=== PATIENT | female | born 1935 ===

== ENCOUNTER 2019-01-12 18:18 | Inpatient (IN) | payer MEDICARE ==
[2019-01-13] MEDS ORDERED: GEODON IM ONE (05:06)
[2019-01-13 11:37] LABS: Basophils % (Auto) 0.4 % (0.0-1.8); Eosinophils # (Auto) 0.1 K/mm3 (0.0-0.4); Eosinophils % (Auto) 1.5 % (0.0-4.3); Hemoglobin 12.7 gm/dl (10.1-14.3); Mean Corpuscular HGB Conc 34 % (30-34); Mean Corpuscular Volume 84 fl (79-97); Monocytes # (Auto) 0.4 K/mm3 (0.0-0.8); Monocytes % (Auto) 8.4 % (0.0-7.3); Platelet Count 196 K/mm3 (140-440); Red Blood Count 4.53 M/mm3 (3.65-5.03); Red Cell Distribution Width 14.6 % (13.2-15.2)
[2019-01-13 11:48] LABS: Calcium 9.4 mg/dL (8.4-10.2)
[2019-01-13] MEDS ORDERED: HALDOL DECANOATE IM PRN (15:01)
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
[2019-01-13] MEDS ORDERED: NON-FORMULARY (Aspirin 81 MG) PO SCH (15:45)
[2019-01-13] MEDS ORDERED: LASIX 40 MG PO SCH (15:45)
[2019-01-13] MEDS: LASIX PO SCH (16:18)
[2019-01-13] MEDS: HALFPRIN EC PO SCH (16:18)
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
[2019-01-13] MEDS: RisperDAL PO SCH ×2 (17:55→21:21)
[2019-01-13] MEDS: HALDOL IM PRN (18:32)
[2019-01-13] MEDS: COREG PO SCH (21:21)
[2019-01-13] MEDS: ATIVAN IM PRN (21:31)
[2019-01-13] MEDS ORDERED: NON-FORMULARY (Coreg 3.125 MG) PO SCH (22:00)
[2019-01-13] MEDS: MELATONIN PO SCH (22:25)
[2019-01-14 08:51] LABS: Calcium 9.1 mg/dL (8.4-10.2); Chol/HDL Ratio 1.77 %
[2019-01-14] MEDS ORDERED: PROCARDIA 60 MG PO SCH (10:00)
[2019-01-14] MEDS ORDERED: CRESTOR 5 MG PO SCH (10:00)
[2019-01-14] MEDS: RisperDAL PO SCH ×2 (10:29→21:36)
[2019-01-14] MEDS: HALFPRIN EC PO SCH (10:29)
[2019-01-14] MEDS: LASIX PO SCH (10:29)
[2019-01-14] MEDS: COREG PO SCH ×2 (10:29→21:35)
[2019-01-14] MEDS: PROCARDIA XL PO SCH (10:33)
--- NOTE | 2019-01-14 11:33 | Progress Note ---
Subjective Date of service: 01/14/19 Principal diagnosis: Dementia w Beh D, Delirium, vision and hearing impaired Subjective Comment: Patient is confused, upset and agitated. Still not communicating but no aggression. She accepts her medications with no observed or reported side effects. She is eating and sleeping well. Objective - Criteria for Continued Treatment Criteria for Continued Treatment: Improving Level of Functioning, Improving Treatment / Medication Compliance, Stablizing Level of Functioning - Mental Status Mental Status: Oriented x [address] - Objective Observation Participation Level: Minimal Assessment and Plan - Patient Problems (1) Major neurocognitive disorder due to Alzheimer's disease, probable, with behavioral disturbance Current Visit: Yes Status: Acute Plan to address problem: Patient will be admitted for inpatient psychiatric evaluation, medication adjustment and close monitoring The patient's behavior, mood, sleep and appetite will be closely monitored. Patient will be enrolled in individual and group therapeutic sessions and encouraged to attend. Patient will be provided with a safe and structured environment. Patient's physical health needs will be addressed by the Hospitalist. Social Assessment will be completed and the Top Spotter will work with patient and family to ensure a suitable and safe disposition Medication adjustment will be made as clinically indicated Risperidone 0.5mg for psychosis/delirium Haldol 5mg IM and Lorazepam im for severe agitation. Melatonin 5mg qhs for sleep/wake cycle regulation. 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
[2019-01-14] MEDS: COZAAR PO SCH (15:56)
[2019-01-14] MEDS: ATIVAN PO PRN (20:17)
[2019-01-14] MEDS: MELATONIN PO SCH (21:35)
[2019-01-15] MEDS: ALDACTONE PO SCH (09:48)
[2019-01-15] MEDS: HALFPRIN EC PO SCH (09:48)
[2019-01-15] MEDS: PROCARDIA XL PO SCH (09:49)
[2019-01-15] MEDS: COREG PO SCH ×2 (09:50→21:51)
[2019-01-15] MEDS: RisperDAL PO SCH ×2 (09:51→21:51)
[2019-01-15] MEDS: COZAAR PO SCH (09:52)
[2019-01-15] MEDS: LASIX PO SCH (09:53)
[2019-01-15] MEDS ORDERED: NON-FORMULARY (Spironolactone 25 MG) PO SCH (10:00)
--- NOTE | 2019-01-15 10:56 | Progress Note ---
Subjective Date of service: 01/15/19 Principal diagnosis: Dementia w Beh D, Delirium, vision and hearing impaired Subjective Comment: No changes. She is confused but no aggression. She accepts her medications with no observed or reported side effects. She is eating and sleeping well. Objective - Criteria for Continued Treatment Criteria for Continued Treatment: Improving Level of Functioning, Stablizing Level of Functioning, Improving Emotional/Socia - Mental Status Mental Status: Oriented x [address] & [address] - Objective Observation Participation Level: Minimal Assessment and Plan - Patient Problems (1) Major neurocognitive disorder due to Alzheimer's disease, probable, with behavioral disturbance Current Visit: Yes Status: Acute Plan to address problem: Patient will be admitted for inpatient psychiatric evaluation, medication adjustment and close monitoring The patient's behavior, mood, sleep and appetite will be closely monitored. Patient will be enrolled in individual and group therapeutic sessions and encouraged to attend. Patient will be provided with a safe and structured environment. Patient's physical health needs will be addressed by the Hospitalist. Social Assessment will be completed and the Oncology Pharmacist will work with patient and family to ensure a suitable and safe disposition Medication adjustment will be made as clinically indicated Risperidone 0.5mg for psychosis/delirium Haldol 5mg IM and Lorazepam im for severe agitation. Melatonin 5mg qhs for sleep/wake cycle regulation. 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
[2019-01-15] MEDS: HALDOL IM PRN (14:51)
[2019-01-15] MEDS: ATIVAN IM PRN (14:52)
[2019-01-15] MEDS: ATIVAN PO PRN (20:13)
[2019-01-15] MEDS: MELATONIN PO SCH (21:51)
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
[2019-01-16] MEDS: RisperDAL PO SCH ×2 (10:29→21:19)
[2019-01-16] MEDS: HALFPRIN EC PO SCH (10:29)
[2019-01-16] MEDS: LASIX PO SCH (10:29)
[2019-01-16] MEDS: ALDACTONE PO SCH (10:46)
[2019-01-16] MEDS: COREG PO SCH ×2 (10:46→21:19)
[2019-01-16] MEDS: COZAAR PO SCH (10:46)
[2019-01-16] MEDS: PROCARDIA XL PO SCH (10:47)
[2019-01-16] MEDS: HALDOL IM PRN (17:26)
[2019-01-16] MEDS: MELATONIN PO SCH (21:19)
[2019-01-16] MEDS ORDERED: DESYREL PO PRN (22:00)
[2019-01-17] MEDS: ALDACTONE PO SCH (09:03)
[2019-01-17] MEDS: COREG PO SCH ×2 (09:04→21:35)
[2019-01-17] MEDS: COZAAR PO SCH (09:05)
[2019-01-17] MEDS: HALFPRIN EC PO SCH (09:05)
[2019-01-17] MEDS: PROCARDIA XL PO SCH (09:06)
[2019-01-17] MEDS: RisperDAL PO SCH ×2 (09:06→21:36)
[2019-01-17] MEDS: LASIX PO SCH (09:06)
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
[2019-01-17] MEDS: MELATONIN PO SCH (21:35)
--- NOTE | 2019-01-18 07:59 | Progress Note ---
Subjective Date of service: 01/18/19 Principal diagnosis: Dementia w Beh D, Delirium, vision and hearing impaired Subjective Comment: Patient is improving. Nursing staff reports that she is calm, cooperative with cares and not aggressive. She reports feeling good, denies SI/HI/AVH/Paranoia. Nursing staff reports that staff feeds her and she attempts to spit out her meds. She slept well last night. Objective - Criteria for Continued Treatment Criteria for Continued Treatment: Improving Level of Functioning, Stablizing Level of Functioning, Improving Emotional/Socia - Mental Status Mental Status: Oriented x [address] - Objective Observation Participation Level: Moderate Assessment and Plan - Patient Problems (1) Major neurocognitive disorder due to Alzheimer's disease, probable, with behavioral disturbance Current Visit: Yes Status: Acute Plan to address problem: Patient will be admitted for inpatient psychiatric evaluation, medication adjustment and close monitoring The patient's behavior, mood, sleep and appetite will be closely monitored. Patient will be enrolled in individual and group therapeutic sessions and encouraged to attend. Patient will be provided with a safe and structured environment. Patient's physical health needs will be addressed by the Hospitalist. Social Assessment will be completed and the Groundman will work with patient and family to ensure a suitable and safe disposition Medication adjustment will be made as clinically indicated Risperidone 0.5mg bid for psychosis/delirium Haldol 5mg IM q6h prn for severe agitation. Melatonin 5mg qhs for sleep/wake cycle regulation. 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
[2019-01-18] MEDS: HALFPRIN EC PO SCH (10:15)
[2019-01-18] MEDS: ALDACTONE PO SCH (10:15)
[2019-01-18] MEDS: COREG PO SCH ×2 (10:16→21:13)
[2019-01-18] MEDS: LASIX PO SCH (10:17)
[2019-01-18] MEDS: RisperDAL PO SCH ×2 (10:17→21:14)
[2019-01-18] MEDS: COZAAR PO SCH (10:17)
[2019-01-18] MEDS: PROCARDIA XL PO SCH (10:17)
[2019-01-18] MEDS: MELATONIN PO SCH (21:14)
--- NOTE | 2019-01-19 07:37 | Progress Note ---
Subjective Date of service: 01/19/19 Principal diagnosis: Dementia w Beh D, Delirium, vision and hearing impaired Subjective Comment: Patient is pleasantly confused this morning. She is calm, cooperative with cares and not aggressive. She reports feeling good, denies SI/HI/AVH/Paranoia. Nursing staff reports that she had 2 loose stools yesterday. She slept well last night. Daughters are visiting her later today. Objective - Criteria for Continued Treatment Criteria for Continued Treatment: Improving Level of Functioning, Stablizing Level of Functioning, Improving Emotional/Socia - Mental Status Mental Status: Oriented x 1 Person only - Objective Observation Participation Level: Moderate Assessment and Plan - Patient Problems (1) Major neurocognitive disorder due to Alzheimer's disease, probable, with behavioral disturbance Current Visit: Yes Status: Acute Plan to address problem: Patient will be admitted for inpatient psychiatric evaluation, medication adjustment and close monitoring The patient's behavior, mood, sleep and appetite will be closely monitored. Patient will be enrolled in individual and group therapeutic sessions and encouraged to attend. Patient will be provided with a safe and structured environment. Patient's physical health needs will be addressed by the Hospitalist. Social Assessment will be completed and the Neuroscientist will work with patient and family to ensure a suitable and safe disposition Medication adjustment will be made as clinically indicated Risperidone 0.5mg bid for psychosis/delirium Haldol 5mg IM q6h prn for severe agitation. Melatonin 5mg qhs for sleep/wake cycle regulation. 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
[2019-01-19] MEDS: HALFPRIN EC PO SCH (09:25)
[2019-01-19] MEDS: RisperDAL PO SCH ×2 (09:26→21:07)
[2019-01-19] MEDS: COZAAR PO SCH (11:15)
[2019-01-19] MEDS: PROCARDIA XL PO SCH (11:16)
[2019-01-19] MEDS: COREG PO SCH ×2 (11:17→21:07)
[2019-01-19] MEDS: ALDACTONE PO SCH (11:18)
[2019-01-19] MEDS: LASIX PO SCH (11:22)
[2019-01-19] MEDS: HALDOL IM PRN (20:15)
[2019-01-19] MEDS: MELATONIN PO SCH (21:07)
[2019-01-20 01:28] LABS: Hepatitis C Virus Antibody Non-Reactive (NonReactive)
[2019-01-20 01:55] LABS: Hepatitis B Surface Antigen Non-Reactive (Negative)
[2019-01-20] MEDS: HALFPRIN EC PO SCH (10:07)
[2019-01-20] MEDS: COREG PO SCH ×2 (10:07→21:02)
[2019-01-20] MEDS: RisperDAL PO SCH ×2 (10:07→21:03)
[2019-01-20] MEDS: LASIX PO SCH (10:08)
[2019-01-20] MEDS: ALDACTONE PO SCH (10:08)
[2019-01-20] MEDS: COZAAR PO SCH (10:08)
[2019-01-20] MEDS: PROCARDIA XL PO SCH (10:09)
--- NOTE | 2019-01-20 19:15 | Progress Note ---
Subjective Date of service: 01/20/19 Principal diagnosis: Dementia w Beh D, Delirium, vision and hearing impaired Subjective Comment: Patient was agitated and aggressive last night and required PRN medications - given at 2015 hrs last night. Her daughters visited yesterday and indicated that they are not happy to have her discharged from the hospital if she is still aggressive towards others. She is pleasantly confused this morning. She reports feeling good, denies SI/HI/AVH/Paranoia. Objective - Criteria for Continued Treatment Criteria for Continued Treatment: Improving Level of Functioning, Stablizing Level of Functioning, Improving Emotional/Socia - Mental Status Mental Status: Oriented x 1 Person only - Objective Observation Participation Level: Moderate Assessment and Plan - Patient Problems (1) Major neurocognitive disorder due to Alzheimer's disease, probable, with behavioral disturbance Current Visit: Yes Status: Acute Plan to address problem: Patient will be admitted for inpatient psychiatric evaluation, medication adjustment and close monitoring The patient's behavior, mood, sleep and appetite will be closely monitored. Patient will be enrolled in individual and group therapeutic sessions and encouraged to attend. Patient will be provided with a safe and structured environment. Patient's physical health needs will be addressed by the Hospitalist. Social Assessment will be completed and the Clean Room Operator will work with patient and family to ensure a suitable and safe disposition Medication adjustment will be made as clinically indicated Will add [id number] and Mirtazapine 7.5mg qhs for mood. Risperidone 0.5mg bid for psychosis/delirium Haldol 5mg IM q6h prn for severe agitation. Melatonin 5mg qhs for sleep/wake cycle regulation. 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
[2019-01-20] MEDS: MELATONIN PO SCH (21:02)
[2019-01-20] MEDS: REMERON PO SCH (21:52)
--- NOTE | 2019-01-21 08:37 | Progress Note ---
Subjective Date of service: 01/21/19 Principal diagnosis: Dementia w Beh D, Delirium, vision and hearing impaired Subjective Comment: Patient was was started on Mirtazapine 7.5mg qhs last night and Citalopram 10mg daily. She was agitated, aggressive and required PRN medications on Monday night. She is pleasantly confused this morning. She reports feeling good, denies SI/HI/AVH/Paranoia. Objective - Criteria for Continued Treatment Criteria for Continued Treatment: Improving Level of Functioning, Improving Emotional/Socia, Decreasing Frequency of Hospitalization - Mental Status Mental Status: Oriented x 1 Person only - Objective Observation Participation Level: Minimal Assessment and Plan - Patient Problems (1) Major neurocognitive disorder due to Alzheimer's disease, probable, with behavioral disturbance Current Visit: Yes Status: Acute Plan to address problem: Patient will be admitted for inpatient psychiatric evaluation, medication adjustment and close monitoring The patient's behavior, mood, sleep and appetite will be closely monitored. Patient will be enrolled in individual and group therapeutic sessions and encouraged to attend. Patient will be provided with a safe and structured environment. Patient's physical health needs will be addressed by the Hospitalist. Social Assessment will be completed and the Blower Operator will work with patient and family to ensure a suitable and safe disposition Medication adjustment will be made as clinically indicated To start [id number] qd this morning Continue Mirtazapine 7.5mg qhs for mood. Risperidone 0.5mg bid for psychosis/delirium Haldol 5mg IM q6h prn for severe agitation. Melatonin 5mg qhs for sleep/wake cycle regulation. 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 Current Visit: Yes Status: Acute (4) Hearing impairment Current Visit: Yes Status: Acute Medications & Allergies - Medications Allergies/Adverse Reactions: Allergies No Known Allergies Allergy (Verified 01/13/19 05:10) Home Medications: Home Medications Medication Instructions Recorded Confirmed Last Taken Type Aspirin 81 mg PO DAILY 01/13/19 01/13/19 Unknown History Coreg 3.125 mg PO BID 01/13/19 01/13/19 Unknown History Crestor 5 mg PO DAILY 01/13/19 01/13/19 Unknown History Lasix TAB 40 mg PO DAILY 01/13/19 01/13/19 Unknown History Losartan 100 mg PO DAILY 01/13/19 01/13/19 Unknown History Procardia Xl 60 mg PO DAILY 01/13/19 01/13/19 Unknown History Spironolactone 25 mg PO DAILY 01/13/19 01/13/19 Unknown History Active Medications: Generic Name Dose Route Start Last Admin Trade Name Freq PRN Reason Stop Dose Admin Aspirin 81 mg 01/13/19 16:00 01/20/19 10:07 Halfprin Ec PO 81 mg QDAY NICKY Administration Atorvastatin Calcium 10 mg 01/14/19 10:00 01/20/19 10:09 Lipitor PO 10 mg QDAY NICKY Administration Carvedilol 3.125 mg 01/13/19 22:00 01/20/19 21:02 Coreg PO 3.125 mg BID NICKY Administration Citalopram Hydrobromide 10 mg 01/21/19 10:00 Celexa PO QDAY NICKY Furosemide 40 mg 01/13/19 16:00 01/20/19 10:08 Lasix PO 40 mg QDAY NICKY Administration Haloperidol Lactate 5 mg 01/13/19 16:12 01/19/19 20:15 Haldol IM 5 mg Q6H PRN Administration Agitation Losartan Potassium 100 mg 01/14/19 14:00 01/20/19 10:08 Cozaar PO 100 mg QDAY NICKY Administration Melatonin 5 mg 01/13/19 22:00 01/20/19 21:02 Melatonin PO 5 mg QHS NICKY Administration Mirtazapine 7.5 mg 01/20/19 22:00 01/20/19 21:52 Remeron PO 7.5 mg QHS NICKY Administration Nifedipine 60 mg 01/14/19 10:00 01/20/19 10:09 Procardia Xl PO 60 mg QDAY NICKY Administration Risperidone 0.5 mg 01/13/19 17:00 01/20/19 21:03 Risperdal PO 0.5 mg BID NICKY Administration Spironolactone 25 mg 01/15/19 10:00 01/20/19 10:08 Aldactone PO 25 mg QDAY NICKY Administration Trazodone HCl 50 mg 01/16/19 22:00 01/16/19 21:20 Desyrel PO 50 mg QHS PRN Administration insomnia
[2019-01-21] MEDS: LASIX PO SCH (09:06)
[2019-01-21] MEDS: RisperDAL PO SCH ×2 (09:08→21:24)
[2019-01-21] MEDS: HALFPRIN EC PO SCH (09:10)
[2019-01-21] MEDS: ALDACTONE PO SCH (09:41)
[2019-01-21] MEDS: COZAAR PO SCH (09:42)
[2019-01-21] MEDS: PROCARDIA XL PO SCH (09:42)
[2019-01-21] MEDS: COREG PO SCH ×2 (09:45→21:23)
[2019-01-21] MEDS: celeXA PO SCH (09:50)
[2019-01-21] MEDS: MELATONIN PO SCH (21:23)
[2019-01-21] MEDS: REMERON PO SCH (21:24)
--- NOTE | 2019-01-22 07:52 | Progress Note ---
Subjective Date of service: 01/22/19 Principal diagnosis: Dementia w Beh D, Delirium, vision and hearing impaired Subjective Comment: Patient is tolerating her new medications. She slept through the last night. She is calm, pleasant and compliant with meds. She reports feeling good, denies SI/H I/AVH/Paranoia. Objective - Criteria for Continued Treatment Criteria for Continued Treatment: Improving Level of Functioning, Stablizing Level of Functioning, Improving Emotional/Socia - Mental Status Mental Status: Oriented x 1 Person only - Objective Observation Participation Level: Moderate Assessment and Plan - Patient Problems (1) Major neurocognitive disorder due to Alzheimer's disease, probable, with behavioral disturbance Current Visit: Yes Status: Acute Plan to address problem: Patient will be admitted for inpatient psychiatric evaluation, medication adjustment and close monitoring The patient's behavior, mood, sleep and appetite will be closely monitored. Patient will be enrolled in individual and group therapeutic sessions and encouraged to attend. Patient will be provided with a safe and structured environment. Patient's physical health needs will be addressed by the Hospitalist. Social Assessment will be completed and the Campaign Director will work with patient and family to ensure a suitable and safe disposition Medication adjustment will be made as clinically indicated Continue [id number] qd (01/21) Continue Mirtazapine 7.5mg qhs for mood (01/22) Risperidone 0.5mg bid for psychosis/delirium Haldol 5mg IM q6h prn for severe agitation. Melatonin 5mg qhs for sleep/wake cycle regulation. 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 Current Visit: Yes Status: Acute (4) Hearing impairment Current Visit: Yes Status: Acute Medications & Allergies - Medications Allergies/Adverse Reactions: Allergies No Known Allergies Allergy (Verified 01/13/19 05:10) Home Medications: Home Medications Medication Instructions Recorded Confirmed Last Taken Type Aspirin 81 mg PO DAILY 01/13/19 01/13/19 Unknown History Coreg 3.125 mg PO BID 01/13/19 01/13/19 Unknown History Crestor 5 mg PO DAILY 01/13/19 01/13/19 Unknown History Lasix TAB 40 mg PO DAILY 01/13/19 01/13/19 Unknown History Losartan 100 mg PO DAILY 01/13/19 01/13/19 Unknown History Procardia Xl 60 mg PO DAILY 01/13/19 01/13/19 Unknown History Spironolactone 25 mg PO DAILY 01/13/19 01/13/19 Unknown History Active Medications: Generic Name Dose Route Start Last Admin Trade Name Freq PRN Reason Stop Dose Admin Aspirin 81 mg 01/13/19 16:00 01/21/19 09:10 Halfprin Ec PO 81 mg QDAY NCIKY Administration Atorvastatin Calcium 10 mg 01/14/19 10:00 01/21/19 09:45 Lipitor PO 10 mg QDAY NICKY Administration Carvedilol 3.125 mg 01/13/19 22:00 01/21/19 21:23 Coreg PO 3.125 mg BID NICKY Administration Citalopram Hydrobromide 10 mg 01/21/19 10:00 01/21/19 09:50 Celexa PO 10 mg QDAY NICKY Administration Furosemide 40 mg 01/13/19 16:00 01/21/19 09:06 Lasix PO 40 mg QDAY NICKY Administration Haloperidol Lactate 5 mg 01/13/19 16:12 01/19/19 20:15 Haldol IM 5 mg Q6H PRN Administration Agitation Losartan Potassium 100 mg 01/14/19 14:00 01/21/19 09:42 Cozaar PO 100 mg QDAY NICKY Administration Melatonin 5 mg 01/13/19 22:00 01/21/19 21:23 Melatonin PO 5 mg QHS NICKY Administration Mirtazapine 7.5 mg 01/20/19 22:00 01/21/19 21:24 Remeron PO 7.5 mg QHS NICKY Administration Nifedipine 60 mg 01/14/19 10:00 01/21/19 09:42 Procardia Xl PO 60 mg QDAY NICKY Administration Risperidone 0.5 mg 01/13/19 17:00 01/21/19 21:24 Risperdal PO 0.5 mg BID NICKY Administration Spironolactone 25 mg 01/15/19 10:00 01/21/19 09:41 Aldactone PO 25 mg QDAY NICKY Administration Trazodone HCl 50 mg 01/16/19 22:00 01/16/19 21:20 Desyrel PO 50 mg QHS PRN Administration insomnia
[2019-01-22] MEDS: COZAAR PO SCH (10:30)
[2019-01-22] MEDS: PROCARDIA XL PO SCH (10:30)
[2019-01-22] MEDS: ALDACTONE PO SCH (10:30)
[2019-01-22] MEDS: COREG PO SCH (10:30)
[2019-01-22] MEDS: LASIX PO SCH (10:30)
[2019-01-22] MEDS: celeXA PO SCH (10:30)
[2019-01-22] MEDS: HALFPRIN EC PO SCH (10:30)
[2019-01-22] MEDS ORDERED: ZOFRAN IV PRN (14:12)
[2019-01-22] MEDS ORDERED: ZOFRAN ODT PO PRN (14:15)
--- NOTE | 2019-01-22 14:23 | Event Note ---
Date: 01/22/19 Rapid response called because patient vomited. Oxygen sats down to 90%. BP 97/50s. She has dementia, heard of hearing, cannot give much history. Will obtain CBC, CMP, Mg, Phos, EKG, Chest X ray.
[2019-01-22] MEDS: RisperDAL PO SCH (14:30)
[2019-01-22 14:31] LABS: Hemoglobin 11.9 gm/dl (10.1-14.3); Mean Corpuscular HGB Conc 34 % (30-34); Mean Corpuscular Volume 83 fl (79-97); Platelet Count 244 K/mm3 (140-440); Red Blood Count 4.22 M/mm3 (3.65-5.03); Red Cell Distribution Width 14.4 % (13.2-15.2)
[2019-01-22 14:37] VITALS: BP 136/80
[2019-01-22 14:47] LABS: Albumin 3.8 g/dL (3.9-5); Calcium 9.3 mg/dL (8.4-10.2)
[2019-01-22 15:25] LABS: Creatine Kinase MB 2.2 ng/mL (0.0-4.0)
--- NOTE | 2019-01-22 16:11 | XRay Report ---
. CHEST 1 VIEW INDICATION / CLINICAL INFORMATION: vomited, poss aspiration. COMPARISON: None available. FINDINGS: SUPPORT DEVICES: None. HEART / MEDIASTINUM: Atherosclerotic calcifications are noted in the aortic arch. LUNGS / PLEURA: No significant pulmonary or pleural abnormality.. No pneumothorax. ADDITIONAL FINDINGS: There are healed left-sided rib fractures. IMPRESSION: 1. No acute findings. Signer Name: Amadeo Hallman MD Signed: 01/22/2019 4:07 PM Workstation Name: [id number]
--- NOTE | 2019-01-22 16:19 | Discharge Summary ---
Providers - Providers Date of Admission: 01/12/19 22:02 Date of discharge: 01/22/19 Attending physician: MARIBEL PATRICK MD 01/21/19 10:55 Consult to Physician [CONS] Routine Comment: Consulting Provider: SUZIE MARSHALL Physician Instructions: Reason For Exam: [facility] Primary care physician: MARIBEL PATRICK MD Hospitalization Allergies/Adverse Reactions: Allergies No Known Allergies Allergy (Verified 01/13/19 05:10) Vital Signs: Last Vital Signs Temp 97.7 F 01/21/19 20:30 Pulse 86 01/22/19 14:25 Resp 14 01/22/19 14:25 BP 136/80 01/22/19 10:30 Pulse Ox 98 01/21/19 20:30 Last Lab: Laboratory Last Values WBC 5.1 K/mm3 (4.5-11.0) 01/22/19 14:15 RBC 4.22 M/mm3 (3.65-5.03) 01/22/19 14:15 Hgb 11.9 gm/dl (10.1-14.3) 01/22/19 14:15 Hct 35.0 % (30.3-42.9) 01/22/19 14:15 MCV 83 fl (79-97) 01/22/19 14:15 MCH 28 pg (28-32) 01/22/19 14:15 MCHC 34 % (30-34) 01/22/19 14:15 RDW 14.4 % (13.2-15.2) 01/22/19 14:15 Plt Count 244 K/mm3 (140-440) 01/22/19 14:15 Lymph % (Auto) 21.0 % (13.4-35.0) 01/13/19 10:52 Mathews % (Auto) 8.4 % (0.0-7.3) H 01/13/19 10:52 Eos % (Auto) 1.5 % (0.0-4.3) 01/13/19 10:52 Baso % (Auto) 0.4 % (0.0-1.8) 01/13/19 10:52 Lymph # 1.0 K/mm3 (1.2-5.4) L 01/13/19 10:52 Mathews # 0.4 K/mm3 (0.0-0.8) 01/13/19 10:52 Eos # 0.1 K/mm3 (0.0-0.4) 01/13/19 10:52 Baso # 0.0 K/mm3 (0.0-0.1) 01/13/19 10:52 Seg Neutrophils % 68.7 % (40.0-70.0) 01/13/19 10:52 Seg Neutrophils # 3.2 K/mm3 (1.8-7.7) 01/13/19 10:52 Sodium 138 mmol/L (137-145) 01/22/19 14:15 Potassium 4.6 mmol/L (3.6-5.0) 01/22/19 14:15 Chloride 102.1 mmol/L (98-107) 01/22/19 14:15 Carbon Dioxide 24 mmol/L (22-30) 01/22/19 14:15 17 mmol/L 01/22/19 14:15 BUN 40 mg/dL (7-17) H 01/22/19 14:15 1.6 mg/dL (0.7-1.2) H 01/22/19 14:15 Estimated GFR 31 ml/min 01/22/19 14:15 25 % 01/22/19 14:15 Glucose 152 mg/dL (65-100) H 01/22/19 14:15 POC Glucose 165 (70-105) H 01/22/19 14:19 5.3 % (4-6) 01/14/19 08:02 Calcium 9.3 mg/dL (8.4-10.2) 01/22/19 14:15 Phosphorus 3.70 mg/dL (2.5-4.5) 01/22/19 14:15 Magnesium 2.10 mg/dL (1.7-2.3) 01/22/19 14:15 0.40 mg/dL (0.1-1.2) 01/22/19 14:15 AST 16 units/L (5-40) 01/22/19 14:15 ALT 11 units/L (7-56) 01/22/19 14:15 77 units/L (35-129) 01/22/19 14:15 145 units/L (30-135) H 01/22/19 14:15 CK-MB (CK-2) 2.2 ng/mL (0.0-4.0) 01/22/19 14:15 < 0.010 ng/mL (0.00-0.029) 01/22/19 14:15 7.5 g/dL (6.3-8.2) 01/22/19 14:15 3.8 g/dL (3.9-5) L 01/22/19 14:15 1.0 % 01/22/19 14:15 Triglycerides 47 mg/dL (2-149) 01/14/19 08:02 Cholesterol 147 mg/dL (50-199) 01/14/19 08:02 64 mg/dL (50-130) 01/14/19 08:02 83 mg/dL (40-59) H 01/14/19 08:02 1.77 % 01/14/19 08:02 Amylase 236 units/L (27-131) H 01/22/19 14:15 61 units/L (13-60) H 01/22/19 14:15 Hepatitis A IgM Ab Non-reactive (NonReactive) 01/20/19 00:14 Hep Bs Antigen Non-reactive (Negative) 01/20/19 00:14 Hep B Core IgM Ab Non-reactive (NonReactive) 01/20/19 00:14 Non-reactive (NonReactive) 01/20/19 00:14 HIV 1&2 Antibody Rapid Non react (Non React) 01/20/19 00:14 Non react (Non React) 01/20/19 00:14 - Discharge Diagnoses (1) Major neurocognitive disorder due to Alzheimer's disease, probable, with behavioral disturbance Status: Acute (2) Delirium due to multiple etiologies Status: Acute (3) 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
== END 2019-01-22 17:45 | disposition short-term general hospital (02) | DRG 57 ==
LOC: UNDOADMIN 18:18 → 3A 18:18 → 5A 22:02
PROVIDERS: ADMIT Psychiatry & Neurology Psychiatry; ATTEND Psychiatry & Neurology Psychiatry
DX: G30.9 Alzheimer's disease, unspecified (principal); F02.81 Dementia in other diseases classified elsewhere, unspecified severity, with behavioral disturbance; I10 Essential (primary) hypertension; I25.10 Atherosclerotic heart disease of native coronary artery without angina pectoris; H40.9 Unspecified glaucoma; F02.80 Dementia in other diseases classified elsewhere, unspecified severity, without behavioral disturbance, psychotic disturbance, mood disturbance, and anxiety; H54.8 Legal blindness, as defined in USA; R41.0 Disorientation, unspecified; H91.93 Unspecified hearing loss, bilateral; Z86.73 Personal history of transient ischemic attack (TIA), and cerebral infarction without residual deficits
CPT/HCPCS: 36415; 71045; 80048; 80053; 80061; 80074; 82150; 82550; 82553; 82962; 83036; 83690; 83735; 84100; 84484; 85025; 85027; 87806; 93005; 93010; G0378; A9270-GY; J1630; J1631; J2060; J3486

== ENCOUNTER 2019-01-22 16:56 | Inpatient (IN) | payer MEDICARE ==
[2019-01-22] MEDS ORDERED: TYLENOL PO PRN (17:19)
[2019-01-22] MEDS ORDERED: ZOFRAN IV PRN (17:19)
[2019-01-22] MEDS ORDERED: SODIUM CHLORIDE FLUSH SYRINGE 10 ML IV PRN (17:19)
--- NOTE | 2019-01-22 17:22 | History and Physical Report ---
History of Present Illness Date of examination: 01/22/19 Date of admission: 01/22/19 Chief complaint: Vomiting History of present illness: Patient is 83 yo with hypertension, CAD , history of stroke, dementia, behavioral changes. She was in [facility]. Rapid response called because she vomited once. She has dementia, agitation, poor hearing, cannot give much history. She was seen and evaluated. She denied chest pain or shortness of breath. Labs drawn revealed Creatinine of 1.7. She is diagnosed with acute kidney injury. Will admit to medical floor from [facility]. Past History Past Medical History: CAD, hypertension, stroke Past Surgical History: Other (Unknown) Social history: , Lives alone, full code. denies: smoking, alcohol abuse Family history: no significant family history Medications and Allergies Allergies Allergy/AdvReac Type Severity Reaction Status Date / Time No Known Allergies Allergy Verified 01/13/19 05:10 Home Medications Medication Instructions Recorded Confirmed Last Taken Type Aspirin 81 mg PO DAILY 01/13/19 01/22/19 Unknown History Coreg 3.125 mg PO BID 01/13/19 01/22/19 Unknown History Crestor 5 mg PO DAILY 01/13/19 01/22/19 Unknown History Lasix TAB 40 mg PO DAILY 01/13/19 01/22/19 Unknown History Losartan 100 mg PO DAILY 01/13/19 01/22/19 Unknown History Procardia Xl 60 mg PO DAILY 01/13/19 01/22/19 Unknown History Spironolactone 25 mg PO DAILY 01/13/19 01/22/19 Unknown History Citalopram [celeXA] 10 mg PO QDAY tablet 01/22/19 01/22/19 Unknown Rx Melatonin [Melatonin 5MG TAB] 5 mg PO QHS tablet 01/22/19 01/22/19 Unknown Rx Mirtazapine [Remeron 15mg TAB] 7.5 mg PO QHS tablet 01/22/19 01/22/19 Unknown Rx risperiDONE [RisperDAL] 0.5 mg PO BID tablet 01/22/19 01/22/19 Unknown Rx traZODone [Desyrel] 50 mg PO QHS PRN tablet 01/22/19 01/22/19 Unknown Rx Review of Systems ROS unobtainable: due to mental status Exam - Physical Exam Narrative exam: Gen: Not in acute distress, sitting up in chair HEENT: Cataracts. atraumatic Neck: supple, no JVD Heart: S1 and S2 reg, no murmurs, rubs or gallop Lungs: Clear, no crackles, no rhonchi Abd: soft, non tender, non distended, normal BS, Ext: No edema, no clubbing, no cyanosis Neuro: Awake, confused,dementia Results - Labs CBC & Chem 7: 01/24/19 05:12 01/24/19 05:12 Assessment and Plan JASON due to vasomotor nephropathy Admit to [facility] Unit Start iv fluids Consult Nephrology Dehydration iv fluids Vomited once Major Neurocognitive disorder due to Alzheimers dementia Initially admitted to [facility], now transferred to [facility] Dementia supportive care Hypertension patient states she has History of stroke On Aspirin,statin Coronary artery disease Stable No chest pain Continue Aspirin, Coreg, Statin 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 Full code status
[2019-01-22] MEDS ORDERED: DESYREL PO PRN (22:06)
[2019-01-22] MEDS ORDERED: APRESOLINE IV PRN (22:10)
[2019-01-22] MEDS: HEPARIN SUB-Q SCH (23:20)
[2019-01-22] MEDS: SODIUM CHLORIDE FLUSH SYRINGE 10 ML IV SCH (23:21)
[2019-01-22] MEDS: MELATONIN PO SCH (23:26)
[2019-01-22] MEDS: APRESOLINE PO SCH (23:26)
[2019-01-22] MEDS: RisperDAL PO SCH (23:26)
[2019-01-22] MEDS: REMERON PO SCH (23:26)
[2019-01-23] MEDS: APRESOLINE PO SCH ×3 (05:15→21:22)
[2019-01-23] MEDS: NACL 0.9% 1000 ML 1,000 ML IV SCH ×2 (06:01→19:42)
[2019-01-23 06:18] LABS: Basophils % (Auto) 0.1 % (0.0-1.8); Hematocrit 31.9 % (30.3-42.9); Hemoglobin 10.7 gm/dl (10.1-14.3); Lymphocytes # (Auto) 0.9 K/mm3 (1.2-5.4); Lymphocytes % (Auto) 5.4 % (13.4-35.0); Mean Corpuscular HGB Conc 34 % (30-34); Mean Corpuscular Volume 82 fl (79-97); Monocytes # (Auto) 0.8 K/mm3 (0.0-0.8); Monocytes % (Auto) 4.7 % (0.0-7.3); Platelet Count 209 K/mm3 (140-440); Red Blood Count 3.89 M/mm3 (3.65-5.03); Red Cell Distribution Width 14.4 % (13.2-15.2)
[2019-01-23 06:36] LABS: Calcium 9.1 mg/dL (8.4-10.2)
[2019-01-23] MEDS: COREG PO SCH ×3 (08:22→21:22)
[2019-01-23] MEDS: RisperDAL PO SCH ×2 (08:59→21:21)
[2019-01-23] MEDS: celeXA PO SCH (08:59)
[2019-01-23] MEDS: HEPARIN SUB-Q SCH ×2 (08:59→21:22)
[2019-01-23] MEDS: BABY ASPIRIN PO SCH (09:00)
[2019-01-23] MEDS: SODIUM CHLORIDE FLUSH SYRINGE 10 ML IV SCH ×2 (09:01→21:22)
[2019-01-23] MEDS ORDERED: PROCARDIA XL PO SCH (10:00)
--- NOTE | 2019-01-23 10:13 | XRay Report ---
CHEST 1 VIEW INDICATION: leukocytosis, vomiting, poss aspiration. COMPARISON: 01/22/2019 FINDINGS: Support devices: None. Heart: Within normal limits. Lungs/Pleura: No acute air space or interstitial disease. Additional findings: None. IMPRESSION: No acute findings. No change since yesterday's exam. Signer Name: Derek Smith Jr, MD Signed: 01/23/2019 10:08 AM Workstation Name: [id number]
--- NOTE | 2019-01-23 10:58 | Consultation ---
History of Present Illness - Reason for Consult Consult date: 01/23/19 acute renal failure Requesting physician: ADORE CHILDERS - History of Present Illness This is a 83 yo AAF with history of hypertension, CAD , history of stroke, dementia, psychosis. She was in [facility]. Rapid response called because she had episodes of vomiting. Labs showed elevated Cr at 1,7mg/dl. pt was transferred to medical unit and renal consult is requested for management of JASON. pt is non-verbal not able to get any detailed history. history obtained by primary attending and chart review. Past History Past Medical History: CAD, hypertension, stroke Past Surgical History: Other (Unknown) Social history: , Lives alone, full code. denies: smoking, alcohol abuse Family history: no significant family history Medications and Allergies Allergies Allergy/AdvReac Type Severity Reaction Status Date / Time No Known Allergies Allergy Verified 01/13/19 05:10 Home Medications Medication Instructions Recorded Confirmed Last Taken Type Aspirin 81 mg PO DAILY 01/13/19 01/22/19 Unknown History Coreg 3.125 mg PO BID 01/13/19 01/22/19 Unknown History Crestor 5 mg PO DAILY 01/13/19 01/22/19 Unknown History Lasix TAB 40 mg PO DAILY 01/13/19 01/22/19 Unknown History Losartan 100 mg PO DAILY 01/13/19 01/22/19 Unknown History Procardia Xl 60 mg PO DAILY 01/13/19 01/22/19 Unknown History Spironolactone 25 mg PO DAILY 01/13/19 01/22/19 Unknown History Citalopram [celeXA] 10 mg PO QDAY tablet 01/22/19 01/22/19 Unknown Rx Melatonin [Melatonin 5MG TAB] 5 mg PO QHS tablet 01/22/19 01/22/19 Unknown Rx Mirtazapine [Remeron 15mg TAB] 7.5 mg PO QHS tablet 01/22/19 01/22/19 Unknown Rx risperiDONE [RisperDAL] 0.5 mg PO BID tablet 01/22/19 01/22/19 Unknown Rx traZODone [Desyrel] 50 mg PO QHS PRN tablet 01/22/19 01/22/19 Unknown Rx Active Meds: Active Medications Acetaminophen (Tylenol) 650 mg PO Q4H PRN PRN Reason: Pain MILD(1-3)/Fever >100.5/PALMA Aspirin (Baby Aspirin) 81 mg PO DAILY [facility] Last Admin: 01/23/19 09:00 Dose: 81 mg Documented by: Atorvastatin Calcium (Lipitor) 10 mg PO QHS [facility] Carvedilol (Coreg) 3.125 mg PO BID [facility] Last Admin: 01/23/19 09:00 Dose: Not Given Documented by: Citalopram Hydrobromide (Celexa) 10 mg PO QDAY [facility] Last Admin: 01/23/19 08:59 Dose: 10 mg Documented by: Heparin Sodium (Porcine) (Heparin) 5,000 unit SUB-Q Q12HR [facility] Last Admin: 01/23/19 08:59 Dose: 5,000 unit Documented by: Hydralazine HCl (Apresoline) 50 mg PO Q8HR [facility] Last Admin: 01/23/19 05:15 Dose: 50 mg Documented by: Hydralazine HCl (Apresoline) 20 mg IV Q4H PRN PRN Reason: SBP>170 or DBP>110 Sodium Chloride (Nacl 0.9% 1000 Ml) 1,000 mls @ 75 mls/hr IV DIRECT [facility] Last Admin: 01/23/19 06:01 Dose: 75 mls/hr Documented by: Melatonin (Melatonin) 5 mg PO QHS [facility] Last Admin: 01/22/19 23:26 Dose: 5 mg Documented by: Mirtazapine (Remeron) 7.5 mg PO QHS [facility] Last Admin: 01/22/19 23:26 Dose: 7.5 mg Documented by: Ondansetron HCl (Zofran) 4 mg IV Q8H PRN PRN Reason: Nausea And Vomiting Risperidone (Risperdal) 0.5 mg PO BID [facility] Last Admin: 01/23/19 08:59 Dose: 0.5 mg Documented by: Sodium Chloride (Sodium Chloride Flush Syringe 10 Ml) 10 ml IV BID [facility] Last Admin: 01/23/19 09:01 Dose: Not Given Documented by: Sodium Chloride (Sodium Chloride Flush Syringe 10 Ml) 10 ml IV PRN PRN PRN Reason: LINE FLUSH Trazodone HCl (Desyrel) 50 mg PO QHS PRN PRN Reason: insomnia Review of Systems ROS unobtainable: due to mental status Exam - Vital Signs Vital signs: Vital Signs Temp Pulse Resp BP Pulse Ox 97.6 F 72 18 186/79 96 01/22/19 18:44 01/22/19 18:44 01/22/19 18:44 01/22/19 18:44 01/22/19 18:44 - General Appearance General appearance: well-developed, appears stated age, other (non-verbal ) EENT: ATNC, PERRL, mucous membranes moist Neck: Present: neck supple Respiratory: Clear to Ascultation Heart: regular, S1S2 Gastrointestinal: Present: normoactive bowel sounds Integumentary: no rash, other (no edema ) Results - Lab Results 01/23/19 05:30 01/23/19 05:30 Most recent lab results Calcium 9.1 mg/dL (8.4-10.2) 01/23/19 05:30 Assessment and Plan - Patient Problems (1) Acute kidney injury Current Visit: Yes Status: Acute Plan to address problem: JASON likely due to pre-renal azotemia in the setting of vomiting and concurrent treatment with lasix/spironolactone and ARB. check UA, UCx, urine lytes, urine protein/cr ratio. hold lasix/spironolacton and ARB for now, especially given low BP. start IV NS at 75ml/hr. Will monitor lytes/renal parameters and make further recommendations (2) Leukocytosis Current Visit: Yes Status: Acute Plan to address problem: check UA, UCx/BCx (3) Major neurocognitive disorder due to Alzheimer's disease, probable, with behavioral disturbance Current Visit: No Status: Acute Plan to address problem: follow pyschiatrist recommendations (4) Vomiting Current Visit: Yes Status: Acute
[2019-01-23 17:38] LABS: Bacteria,Urine 1+ /HPF (Negative); Bilirubin,Urine NEG (Negative); Blood,Urine NEG (Negative); Color,Urine Yellow (Yellow); Mucus,Urine FEW /HPF; Protein,Urine <15 mg/dL mg/dL (Negative); RBC,Urine < 1.0 /HPF (0.0-6.0); Urobilinogen,Urine < 2.0 mg/dL (<2.0)
[2019-01-23] MEDS: MELATONIN PO SCH (21:21)
[2019-01-23] MEDS: REMERON PO SCH (21:22)
[2019-01-24 05:49] LABS: Hematocrit 33.8 % (30.3-42.9); Hemoglobin 11.5 gm/dl (10.1-14.3); Mean Corpuscular HGB Conc 34 % (30-34); Mean Corpuscular Volume 83 fl (79-97); Platelet Count 238 K/mm3 (140-440); Red Blood Count 4.05 M/mm3 (3.65-5.03); Red Cell Distribution Width 14.6 % (13.2-15.2)
[2019-01-24] MEDS: APRESOLINE PO SCH ×3 (06:00→22:31)
[2019-01-24] MEDS: HEPARIN SUB-Q SCH ×2 (08:59→22:36)
[2019-01-24] MEDS: BABY ASPIRIN PO SCH ×2 (08:59→15:13)
[2019-01-24] MEDS: RisperDAL PO SCH ×3 (08:59→22:32)
[2019-01-24] MEDS: SODIUM CHLORIDE FLUSH SYRINGE 10 ML IV SCH ×2 (09:00→22:37)
[2019-01-24] MEDS: celeXA PO SCH ×2 (09:00→15:14)
[2019-01-24] MEDS: COREG PO SCH ×3 (09:00→22:38)
--- NOTE | 2019-01-24 09:51 | Progress Note ---
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 Full code status Discussed with daughters at bedside History Interval history: Feels better vomited once today No fever Hospitalist Physical - Physical exam Narrative exam: Gen: Not in acute distress, sitting up in chair HEENT: Cataracts. atraumatic Neck: supple, no JVD Heart: S1 and S2 reg, no murmurs, rubs or gallop Lungs: Clear, no crackles, no rhonchi Abd: soft, non tender, non distended, normal BS, Ext: No edema, no clubbing, no cyanosis Neuro: Awake, confused,dementia - Constitutional Vitals: Temp Pulse Resp BP Pulse Ox 99.0 F 74 18 124/56 98 01/24/19 07:13 01/24/19 09:00 01/24/19 07:13 01/24/19 09:00 01/24/19 07:13 Results - Labs CBC & Chem 7: 01/24/19 05:12 01/24/19 05:12 Labs: Laboratory Last Values WBC 9.1 K/mm3 (4.5-11.0) 01/24/19 05:12 RBC 4.05 M/mm3 (3.65-5.03) 01/24/19 05:12 Hgb 11.5 gm/dl (10.1-14.3) 01/24/19 05:12 Hct 33.8 % (30.3-42.9) 01/24/19 05:12 MCV 83 fl (79-97) 01/24/19 05:12 MCH 28 pg (28-32) 01/24/19 05:12 MCHC 34 % (30-34) 01/24/19 05:12 RDW 14.6 % (13.2-15.2) 01/24/19 05:12 Plt Count 238 K/mm3 (140-440) 01/24/19 05:12 Lymph % (Auto) 5.4 % (13.4-35.0) L 01/23/19 05:30 [place] % (Auto) 4.7 % (0.0-7.3) 01/23/19 05:30 Eos % (Auto) 0.0 % (0.0-4.3) 01/23/19 05:30 Baso % (Auto) 0.1 % (0.0-1.8) 01/23/19 05:30 Lymph # 0.9 K/mm3 (1.2-5.4) L 01/23/19 05:30 [place] # 0.8 K/mm3 (0.0-0.8) 01/23/19 05:30 Eos # 0.0 K/mm3 (0.0-0.4) 01/23/19 05:30 Baso # 0.0 K/mm3 (0.0-0.1) 01/23/19 05:30 Seg Neutrophils % 89.8 % (40.0-70.0) H 01/23/19 05:30 Seg Neutrophils # 15.7 K/mm3 (1.8-7.7) H 01/23/19 05:30 Sodium 140 mmol/L (137-145) 01/24/19 05:12 Potassium 3.7 mmol/L (3.6-5.0) 01/24/19 05:12 Chloride 104.2 mmol/L (98-107) 01/24/19 05:12 Carbon Dioxide 24 mmol/L (22-30) 01/24/19 05:12 16 mmol/L 01/24/19 05:12 BUN 40 mg/dL (7-17) H 01/24/19 05:12 1.6 mg/dL (0.7-1.2) H 01/24/19 05:12 Estimated GFR 31 ml/min 01/24/19 05:12 25 % 01/24/19 05:12 Glucose 92 mg/dL (65-100) 01/24/19 05:12 POC Glucose 100 (70-105) 01/24/19 07:11 Calcium 9.0 mg/dL (8.4-10.2) 01/24/19 05:12 Yellow (Yellow) 01/23/19 16:55 Clear (Clear) 01/23/19 16:55 6.0 (5.0-7.0) 01/23/19 16:55 Ur Specific [place] 1.011 (1.003-1.030) 01/23/19 16:55 <15 mg/dl mg/dL (Negative) 01/23/19 16:55 Neg mg/dL (Negative) 01/23/19 16:55 Neg mg/dL (Negative) 01/23/19 16:55 Neg (Negative) 01/23/19 16:55 Neg (Negative) 01/23/19 16:55 Neg (Negative) 01/23/19 16:55 < 2.0 mg/dL (<2.0) 01/23/19 16:55 Ur Leukocyte Esterase Tr (Negative) 01/23/19 16:55 4.0 /HPF (0.0-6.0) 01/23/19 16:55 < 1.0 /HPF (0.0-6.0) 01/23/19 16:55 U Epithel Cells (Auto) 2.0 /HPF (0-13.0) 01/23/19 16:55 1+ /HPF (Negative) 01/23/19 16:55 Few /HPF 01/23/19 16:55 95.0 mg/dL (0.1-20.0) H 01/23/19 16:55 33 mmol/L 01/23/19 16:55 15 mg/dL (5-11.8) H 01/23/19 16:55 Active Medications - Current Medications Current Medications: Generic Name Dose Route Start Last Admin Trade Name Freq PRN Reason Stop Dose Admin Acetaminophen 650 mg 01/22/19 17:19 Tylenol PO Q4H PRN Pain MILD(1-3)/Fever >100.5/PALMA Aspirin 81 mg 01/23/19 10:00 01/24/19 08:59 Baby Aspirin PO 81 mg DAILY NICKY Administration Atorvastatin Calcium 10 mg 01/23/19 22:00 01/23/19 21:22 Lipitor PO 10 mg QHS NICKY Administration Carvedilol 3.125 mg 01/22/19 22:15 01/24/19 09:00 Coreg PO 3.125 mg BID NICKY Administration Citalopram Hydrobromide 10 mg 01/23/19 10:00 01/24/19 09:00 Celexa PO 10 mg QDAY NICKY Administration Heparin Sodium (Porcine) 5,000 unit 01/22/19 22:00 01/24/19 08:59 Heparin SUB-Q 5,000 unit Q12HR NICKY Administration Hydralazine HCl 50 mg 01/22/19 23:00 01/24/19 06:00 Apresoline PO 50 mg Q8HR NICKY Administration Hydralazine HCl 20 mg 01/22/19 22:10 Apresoline IV Q4H PRN SBP>170 or DBP>110 Sodium Chloride 1,000 mls @ 75 mls/hr 01/22/19 18:00 01/23/19 19:42 Nacl 0.9% 1000 Ml IV 75 mls/hr DIRECT NICKY Administration Melatonin 5 mg 01/22/19 23:00 01/23/19 21:21 Melatonin PO 5 mg QHS NICKY Administration Mirtazapine 7.5 mg 01/22/19 23:00 01/23/19 21:22 Remeron PO 7.5 mg QHS NICKY Administration Ondansetron HCl 4 mg 01/22/19 17:19 Zofran IV Q8H PRN Nausea And Vomiting Risperidone 0.5 mg 01/22/19 23:00 01/24/19 08:59 Risperdal PO 0.5 mg BID NICKY Administration Sodium Chloride 10 ml 01/22/19 22:00 01/24/19 09:00 Sodium Chloride Flush Syringe 10 Ml IV Not Given BID NICKY Sodium Chloride 10 ml 01/22/19 17:19 Sodium Chloride Flush Syringe 10 Ml IV PRN PRN LINE FLUSH Trazodone HCl 50 mg 01/22/19 22:06 Desyrel PO QHS PRN insomnia
--- NOTE | 2019-01-24 09:51 | Progress Note ---
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 Full code status History Interval history: Feels better vomited once today No fever Hospitalist Physical - Physical exam Narrative exam: Gen: Not in acute distress, sitting up in chair HEENT: Cataracts. atraumatic Neck: supple, no JVD Heart: S1 and S2 reg, no murmurs, rubs or gallop Lungs: Clear, no crackles, no rhonchi Abd: soft, non tender, non distended, normal BS, Ext: No edema, no clubbing, no cyanosis Neuro: Awake, confused, dementia - Constitutional Vitals: Temp Pulse Resp BP Pulse Ox 99.0 F 74 18 124/56 98 01/24/19 07:13 01/24/19 09:00 01/24/19 07:13 01/24/19 09:00 01/24/19 07:13 Results - Labs CBC & Chem 7: 01/25/19 04:40 01/25/19 04:40 Labs: Laboratory Last Values WBC 9.1 K/mm3 (4.5-11.0) 01/24/19 05:12 RBC 4.05 M/mm3 (3.65-5.03) 01/24/19 05:12 Hgb 11.5 gm/dl (10.1-14.3) 01/24/19 05:12 Hct 33.8 % (30.3-42.9) 01/24/19 05:12 MCV 83 fl (79-97) 01/24/19 05:12 MCH 28 pg (28-32) 01/24/19 05:12 MCHC 34 % (30-34) 01/24/19 05:12 RDW 14.6 % (13.2-15.2) 01/24/19 05:12 Plt Count 238 K/mm3 (140-440) 01/24/19 05:12 Lymph % (Auto) 5.4 % (13.4-35.0) L 01/23/19 05:30 [place] % (Auto) 4.7 % (0.0-7.3) 01/23/19 05:30 Eos % (Auto) 0.0 % (0.0-4.3) 01/23/19 05:30 Baso % (Auto) 0.1 % (0.0-1.8) 01/23/19 05:30 Lymph # 0.9 K/mm3 (1.2-5.4) L 01/23/19 05:30 [place] # 0.8 K/mm3 (0.0-0.8) 01/23/19 05:30 Eos # 0.0 K/mm3 (0.0-0.4) 01/23/19 05:30 Baso # 0.0 K/mm3 (0.0-0.1) 01/23/19 05:30 Seg Neutrophils % 89.8 % (40.0-70.0) H 01/23/19 05:30 Seg Neutrophils # 15.7 K/mm3 (1.8-7.7) H 01/23/19 05:30 Sodium 140 mmol/L (137-145) 01/24/19 05:12 Potassium 3.7 mmol/L (3.6-5.0) 01/24/19 05:12 Chloride 104.2 mmol/L (98-107) 01/24/19 05:12 Carbon Dioxide 24 mmol/L (22-30) 01/24/19 05:12 16 mmol/L 01/24/19 05:12 BUN 40 mg/dL (7-17) H 01/24/19 05:12 1.6 mg/dL (0.7-1.2) H 01/24/19 05:12 Estimated GFR 31 ml/min 01/24/19 05:12 25 % 01/24/19 05:12 Glucose 92 mg/dL (65-100) 01/24/19 05:12 POC Glucose 100 (70-105) 01/24/19 07:11 Calcium 9.0 mg/dL (8.4-10.2) 01/24/19 05:12 Yellow (Yellow) 01/23/19 16:55 Clear (Clear) 01/23/19 16:55 6.0 (5.0-7.0) 01/23/19 16:55 Ur Specific [place] 1.011 (1.003-1.030) 01/23/19 16:55 <15 mg/dl mg/dL (Negative) 01/23/19 16:55 Neg mg/dL (Negative) 01/23/19 16:55 Neg mg/dL (Negative) 01/23/19 16:55 Neg (Negative) 01/23/19 16:55 Neg (Negative) 01/23/19 16:55 Neg (Negative) 01/23/19 16:55 < 2.0 mg/dL (<2.0) 01/23/19 16:55 Ur Leukocyte Esterase Tr (Negative) 01/23/19 16:55 4.0 /HPF (0.0-6.0) 01/23/19 16:55 < 1.0 /HPF (0.0-6.0) 01/23/19 16:55 U Epithel Cells (Auto) 2.0 /HPF (0-13.0) 01/23/19 16:55 1+ /HPF (Negative) 01/23/19 16:55 Few /HPF 01/23/19 16:55 95.0 mg/dL (0.1-20.0) H 01/23/19 16:55 33 mmol/L 01/23/19 16:55 15 mg/dL (5-11.8) H 01/23/19 16:55 Active Medications - Current Medications Current Medications: Generic Name Dose Route Start Last Admin Trade Name Freq PRN Reason Stop Dose Admin Acetaminophen 650 mg 01/22/19 17:19 Tylenol PO Q4H PRN Pain MILD(1-3)/Fever >100.5/PALMA Aspirin 81 mg 01/23/19 10:00 01/24/19 08:59 Baby Aspirin PO 81 mg DAILY NICKY Administration Atorvastatin Calcium 10 mg 01/23/19 22:00 01/23/19 21:22 Lipitor PO 10 mg QHS NICKY Administration Carvedilol 3.125 mg 01/22/19 22:15 01/24/19 09:00 Coreg PO 3.125 mg BID NICKY Administration Citalopram Hydrobromide 10 mg 01/23/19 10:00 01/24/19 09:00 Celexa PO 10 mg QDAY NICKY Administration Heparin Sodium (Porcine) 5,000 unit 01/22/19 22:00 01/24/19 08:59 Heparin SUB-Q 5,000 unit Q12HR NICKY Administration Hydralazine HCl 50 mg 01/22/19 23:00 01/24/19 06:00 Apresoline PO 50 mg Q8HR NICKY Administration Hydralazine HCl 20 mg 01/22/19 22:10 Apresoline IV Q4H PRN SBP>170 or DBP>110 Sodium Chloride 1,000 mls @ 75 mls/hr 01/22/19 18:00 01/23/19 19:42 Nacl 0.9% 1000 Ml IV 75 mls/hr DIRECT NICKY Administration Melatonin 5 mg 01/22/19 23:00 01/23/19 21:21 Melatonin PO 5 mg QHS NICKY Administration Mirtazapine 7.5 mg 01/22/19 23:00 01/23/19 21:22 Remeron PO 7.5 mg QHS NICKY Administration Ondansetron HCl 4 mg 01/22/19 17:19 Zofran IV Q8H PRN Nausea And Vomiting Risperidone 0.5 mg 01/22/19 23:00 01/24/19 08:59 Risperdal PO 0.5 mg BID NICKY Administration Sodium Chloride 10 ml 01/22/19 22:00 01/24/19 09:00 Sodium Chloride Flush Syringe 10 Ml IV Not Given BID NICKY Sodium Chloride 10 ml 01/22/19 17:19 Sodium Chloride Flush Syringe 10 Ml IV PRN PRN LINE FLUSH Trazodone HCl 50 mg 01/22/19 22:06 Desyrel PO QHS PRN insomnia
--- NOTE | 2019-01-24 17:11 | Progress Note ---
Assessment and Plan - Patient Problems (1) Acute kidney injury Current Visit: Yes Status: Acute Plan to address problem: JASON likely due to pre-renal azotemia in the setting of vomiting and concurrent treatment with lasix/spironolactone and ARB. FeNA ~0.4%. UA without hematuria/proteinuria to suggest acute glomerular injury. cont hold lasix/spironolacton and ARB for now, especially given low BP. cont IV NS at 75ml/hr. Will monitor lytes/renal parameters and make further recommendations (2) Leukocytosis Current Visit: Yes Status: Acute Plan to address problem: check UA, UCx/BCx (3) Major neurocognitive disorder due to Alzheimer's disease, probable, with behavioral disturbance Current Visit: No Status: Acute Plan to address problem: follow pyschiatrist recommendations (4) Vomiting Current Visit: Yes Status: Acute Subjective Date of service: 01/24/19 Principal diagnosis: JASON Interval history: Patient awake, non-verbal, in NAD Objective - Vital Signs Vital signs: Vital Signs - 12hr 01/24/19 01/24/19 01/24/19 07:05 07:13 09:56 Temperature 98.6 F 99.0 F Pulse Rate 70 81 Pulse Rate [ From Monitor] Respiratory 18 18 Rate Blood Pressure 138/53 130/68 O2 Sat by Pulse 95 98 99 Oximetry 01/24/19 01/24/19 01/24/19 10:00 12:50 14:19 Temperature 98.7 F Pulse Rate 69 Pulse Rate [ 74 From Monitor] Respiratory 18 Rate Blood Pressure 153/56 153/56 O2 Sat by Pulse 99 96 Oximetry - General Appearance General appearance: well-developed, well-nourished, appears stated age EENT: ATNC, PERRL, mucous membranes moist Neck: no JVD Respiratory: Present: Clear to Ascultation Cardiology: regular, S1S2 Gastrointestinal: normoactive bowel sounds Integumentary: no rash, other (no edema ) Neurologic: no focal deficit - Lab 01/24/19 05:12 01/24/19 05:12 Most recent lab results Calcium 9.0 mg/dL (8.4-10.2) 01/24/19 05:12 95.0 mg/dL (0.1-20.0) H 01/23/19 16:55 33 mmol/L 01/23/19 16:55 15 mg/dL (5-11.8) H 01/23/19 16:55 Medications & Allergies - Medications Allergies/Adverse Reactions: Allergies No Known Allergies Allergy (Verified 01/13/19 05:10) Home Medications: Home Medications Medication Instructions Recorded Confirmed Last Taken Type Aspirin 81 mg PO DAILY 01/13/19 01/22/19 Unknown History Coreg 3.125 mg PO BID 01/13/19 01/22/19 Unknown History Crestor 5 mg PO DAILY 01/13/19 01/22/19 Unknown History Lasix TAB 40 mg PO DAILY 01/13/19 01/22/19 Unknown History Losartan 100 mg PO DAILY 01/13/19 01/22/19 Unknown History Procardia Xl 60 mg PO DAILY 01/13/19 01/22/19 Unknown History Spironolactone 25 mg PO DAILY 01/13/19 01/22/19 Unknown History Citalopram [celeXA] 10 mg PO QDAY tablet 01/22/19 01/22/19 Unknown Rx Melatonin [Melatonin 5MG TAB] 5 mg PO QHS tablet 01/22/19 01/22/19 Unknown Rx Mirtazapine [Remeron 15mg TAB] 7.5 mg PO QHS tablet 01/22/19 01/22/19 Unknown Rx risperiDONE [RisperDAL] 0.5 mg PO BID tablet 01/22/19 01/22/19 Unknown Rx traZODone [Desyrel] 50 mg PO QHS PRN tablet 01/22/19 01/22/19 Unknown Rx Active Medications: Generic Name Dose Route Start Last Admin Trade Name Freq PRN Reason Stop Dose Admin Acetaminophen 650 mg 01/22/19 17:19 Tylenol PO Q4H PRN Pain MILD(1-3)/Fever >100.5/PALMA Aspirin 81 mg 01/23/19 10:00 01/24/19 15:13 Baby Aspirin PO Not Given DAILY [facility] Atorvastatin Calcium 10 mg 01/23/19 22:00 01/23/19 21:22 Lipitor PO 10 mg QHS NICKY Administration Carvedilol 3.125 mg 01/22/19 22:15 01/24/19 15:11 Coreg PO Not Given BID NICKY Citalopram Hydrobromide 10 mg 01/23/19 10:00 01/24/19 15:14 Celexa PO Not Given QDAY NICKY Heparin Sodium (Porcine) 5,000 unit 01/22/19 22:00 01/24/19 08:59 Heparin SUB-Q 5,000 unit Q12HR NICKY Administration Hydralazine HCl 50 mg 01/22/19 23:00 01/24/19 14:19 Apresoline PO Not Given Q8HR NICKY Hydralazine HCl 20 mg 01/22/19 22:10 Apresoline IV Q4H PRN SBP>170 or DBP>110 Sodium Chloride 1,000 mls @ 75 mls/hr 01/22/19 18:00 01/23/19 19:42 Nacl 0.9% 1000 Ml IV 75 mls/hr DIRECT NICKY Administration Melatonin 5 mg 01/22/19 23:00 01/23/19 21:21 Melatonin PO 5 mg QHS NICKY Administration Mirtazapine 7.5 mg 01/22/19 23:00 01/23/19 21:22 Remeron PO 7.5 mg QHS NICKY Administration Ondansetron HCl 4 mg 01/22/19 17:19 Zofran IV Q8H PRN Nausea And Vomiting Risperidone 0.5 mg 01/22/19 23:00 01/24/19 15:12 Risperdal PO Not Given BID NICKY Sodium Chloride 10 ml 01/22/19 22:00 01/24/19 09:00 Sodium Chloride Flush Syringe 10 Ml IV Not Given BID NICKY Sodium Chloride 10 ml 01/22/19 17:19 Sodium Chloride Flush Syringe 10 Ml IV PRN PRN LINE FLUSH Trazodone HCl 50 mg 01/22/19 22:06 Desyrel PO QHS PRN insomnia
[2019-01-24] MEDS: REMERON PO SCH (22:31)
[2019-01-24] MEDS: MELATONIN PO SCH (22:31)
[2019-01-25 05:15] LABS: Hemoglobin 11.2 gm/dl (10.1-14.3); Mean Corpuscular HGB Conc 34 % (30-34); Mean Corpuscular Volume 83 fl (79-97); Platelet Count 223 K/mm3 (140-440); Red Blood Count 3.99 M/mm3 (3.65-5.03); Red Cell Distribution Width 14.3 % (13.2-15.2)
[2019-01-25] MEDS: APRESOLINE PO SCH ×3 (05:33→22:12)
[2019-01-25] MEDS: COREG PO SCH ×2 (09:00→22:14)
[2019-01-25] MEDS: celeXA PO SCH (09:01)
[2019-01-25] MEDS: HEPARIN SUB-Q SCH ×2 (09:02→22:02)
[2019-01-25] MEDS: RisperDAL PO SCH ×2 (09:02→22:09)
[2019-01-25] MEDS: BABY ASPIRIN PO SCH (09:03)
[2019-01-25] MEDS: SODIUM CHLORIDE FLUSH SYRINGE 10 ML IV SCH ×2 (09:12→22:20)
--- NOTE | 2019-01-25 11:01 | Progress Note ---
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 Full code status Discussed with 2 daughters on 01/23/19 PT eval Psych following History Interval history: patient gets agitated on and off No fever Hospitalist Physical - Physical exam Narrative exam: Gen: Not in acute distress, sitting up in chair HEENT: Cataracts. atraumatic Neck: supple, no JVD Heart: S1 and S2 reg, no murmurs, rubs or gallop Lungs: Clear, no crackles, no rhonchi Abd: soft, non tender, non distended, normal BS, Ext: No edema, no clubbing, no cyanosis Neuro: Awake, confused, dementia - Constitutional Vitals: Temp Pulse Resp BP Pulse Ox 98.0 F 93 H 20 117/77 98 01/25/19 07:39 01/25/19 09:27 01/25/19 07:39 01/25/19 09:00 01/25/19 09:27 Results - Labs CBC & Chem 7: 01/25/19 04:40 01/25/19 04:40 Labs: Laboratory Last Values WBC 6.2 K/mm3 (4.5-11.0) 01/25/19 04:40 RBC 3.99 M/mm3 (3.65-5.03) 01/25/19 04:40 Hgb 11.2 gm/dl (10.1-14.3) 01/25/19 04:40 Hct 33.0 % (30.3-42.9) 01/25/19 04:40 MCV 83 fl (79-97) 01/25/19 04:40 MCH 28 pg (28-32) 01/25/19 04:40 MCHC 34 % (30-34) 01/25/19 04:40 RDW 14.3 % (13.2-15.2) 01/25/19 04:40 Plt Count 223 K/mm3 (140-440) 01/25/19 04:40 Lymph % (Auto) 5.4 % (13.4-35.0) L 01/23/19 05:30 [place] % (Auto) 4.7 % (0.0-7.3) 01/23/19 05:30 Eos % (Auto) 0.0 % (0.0-4.3) 01/23/19 05:30 Baso % (Auto) 0.1 % (0.0-1.8) 01/23/19 05:30 Lymph # 0.9 K/mm3 (1.2-5.4) L 01/23/19 05:30 [place] # 0.8 K/mm3 (0.0-0.8) 01/23/19 05:30 Eos # 0.0 K/mm3 (0.0-0.4) 01/23/19 05:30 Baso # 0.0 K/mm3 (0.0-0.1) 01/23/19 05:30 Seg Neutrophils % 89.8 % (40.0-70.0) H 01/23/19 05:30 Seg Neutrophils # 15.7 K/mm3 (1.8-7.7) H 01/23/19 05:30 Sodium 142 mmol/L (137-145) 01/25/19 04:40 Potassium 4.1 mmol/L (3.6-5.0) 01/25/19 04:40 Chloride 106.9 mmol/L (98-107) 01/25/19 04:40 Carbon Dioxide 23 mmol/L (22-30) 01/25/19 04:40 16 mmol/L 01/25/19 04:40 BUN 34 mg/dL (7-17) H 01/25/19 04:40 1.5 mg/dL (0.7-1.2) H 01/25/19 04:40 Estimated GFR 33 ml/min 01/25/19 04:40 23 % 01/25/19 04:40 Glucose 97 mg/dL (65-100) 01/25/19 04:40 POC Glucose 100 (70-105) 01/25/19 07:47 Calcium 9.0 mg/dL (8.4-10.2) 01/25/19 04:40 Yellow (Yellow) 01/23/19 16:55 Clear (Clear) 01/23/19 16:55 6.0 (5.0-7.0) 01/23/19 16:55 Ur Specific [place] 1.011 (1.003-1.030) 01/23/19 16:55 <15 mg/dl mg/dL (Negative) 01/23/19 16:55 Neg mg/dL (Negative) 01/23/19 16:55 Neg mg/dL (Negative) 01/23/19 16:55 Neg (Negative) 01/23/19 16:55 Neg (Negative) 01/23/19 16:55 Neg (Negative) 01/23/19 16:55 < 2.0 mg/dL (<2.0) 01/23/19 16:55 Ur Leukocyte Esterase Tr (Negative) 01/23/19 16:55 4.0 /HPF (0.0-6.0) 01/23/19 16:55 < 1.0 /HPF (0.0-6.0) 01/23/19 16:55 U Epithel Cells (Auto) 2.0 /HPF (0-13.0) 01/23/19 16:55 1+ /HPF (Negative) 01/23/19 16:55 Few /HPF 01/23/19 16:55 95.0 mg/dL (0.1-20.0) H 01/23/19 16:55 33 mmol/L 01/23/19 16:55 15 mg/dL (5-11.8) H 01/23/19 16:55 Active Medications - Current Medications Current Medications: Generic Name Dose Route Start Last Admin Trade Name Freq PRN Reason Stop Dose Admin Acetaminophen 650 mg 01/22/19 17:19 Tylenol PO Q4H PRN Pain MILD(1-3)/Fever >100.5/PALMA Aspirin 81 mg 01/23/19 10:00 01/25/19 09:03 Baby Aspirin PO 81 mg DAILY NICKY Administration Atorvastatin Calcium 10 mg 01/23/19 22:00 01/24/19 22:32 Lipitor PO 10 mg QHS NICKY Administration Carvedilol 3.125 mg 01/22/19 22:15 01/25/19 09:00 Coreg PO 3.125 mg BID NICKY Administration Citalopram Hydrobromide 10 mg 01/23/19 10:00 01/25/19 09:01 Celexa PO 10 mg QDAY NICKY Administration Heparin Sodium (Porcine) 5,000 unit 01/22/19 22:00 01/25/19 09:02 Heparin SUB-Q 5,000 unit Q12HR NICKY Administration Hydralazine HCl 50 mg 01/22/19 23:00 01/25/19 05:33 Apresoline PO 50 mg Q8HR NICKY Administration Hydralazine HCl 20 mg 01/22/19 22:10 Apresoline IV Q4H PRN SBP>170 or DBP>110 Sodium Chloride 1,000 mls @ 75 mls/hr 01/22/19 18:00 01/23/19 19:42 Nacl 0.9% 1000 Ml IV 75 mls/hr DIRECT NICKY Administration Melatonin 5 mg 01/22/19 23:00 01/24/19 22:31 Melatonin PO 5 mg QHS NICKY Administration Mirtazapine 7.5 mg 01/22/19 23:00 01/24/19 22:31 Remeron PO 7.5 mg QHS NICKY Administration Ondansetron HCl 4 mg 01/22/19 17:19 Zofran IV Q8H PRN Nausea And Vomiting Risperidone 0.5 mg 01/22/19 23:00 01/25/19 09:02 Risperdal PO 0.5 mg BID NICKY Administration Sodium Chloride 10 ml 01/22/19 22:00 01/25/19 09:12 Sodium Chloride Flush Syringe 10 Ml IV Not Given BID NICKY Sodium Chloride 10 ml 01/22/19 17:19 Sodium Chloride Flush Syringe 10 Ml IV PRN PRN LINE FLUSH Trazodone HCl 50 mg 01/22/19 22:06 01/24/19 22:32 Desyrel PO 50 mg QHS PRN Administration insomnia
--- NOTE | 2019-01-25 13:37 | Progress Note ---
Assessment and Plan - Patient Problems (1) Acute kidney injury Current Visit: Yes Status: Acute Plan to address problem: JASON likely due to pre-renal azotemia in the setting of vomiting and concurrent treatment with lasix/spironolactone and ARB. FeNA ~0.4%. UA without hematuria/proteinuria to suggest acute glomerular injury. cont hold lasix/spironolacton and ARB for now, especially given low BP. cont IV NS at 75ml/hr. Will monitor lytes/renal parameters and make further recommendations (2) Leukocytosis Current Visit: Yes Status: Acute Plan to address problem: resolved. BCx NGTD (3) Major neurocognitive disorder due to Alzheimer's disease, probable, with behavioral disturbance Current Visit: No Status: Acute Plan to address problem: follow pyschiatrist recommendations (4) Vomiting Current Visit: Yes Status: Acute Subjective Date of service: 01/25/19 Principal diagnosis: JASON Interval history: Patient awake, non-verbal, in NAD Objective - Vital Signs Vital signs: Vital Signs - 12hr 01/25/19 01/25/19 01/25/19 05:32 07:39 09:00 Temperature 98.0 F Pulse Rate 93 H Pulse Rate [ From Monitor] Respiratory 20 20 Rate Blood Pressure 155/74 133/102 117/77 O2 Sat by Pulse Oximetry 01/25/19 09:27 Temperature Pulse Rate Pulse Rate [ 93 H From Monitor] Respiratory Rate Blood Pressure O2 Sat by Pulse 98 Oximetry - General Appearance General appearance: well-developed, appears stated age EENT: ATNC, PERRL, mucous membranes dry Neck: no JVD Respiratory: Present: Clear to Ascultation Cardiology: regular, S1S2 Gastrointestinal: normoactive bowel sounds Integumentary: no rash, other (no edema ) - Lab 01/25/19 04:40 01/25/19 04:40 Most recent lab results Calcium 9.0 mg/dL (8.4-10.2) 01/25/19 04:40 95.0 mg/dL (0.1-20.0) H 01/23/19 16:55 33 mmol/L 01/23/19 16:55 15 mg/dL (5-11.8) H 01/23/19 16:55 Medications & Allergies - Medications Allergies/Adverse Reactions: Allergies No Known Allergies Allergy (Verified 01/13/19 05:10) Home Medications: Home Medications Medication Instructions Recorded Confirmed Last Taken Type Aspirin 81 mg PO DAILY 01/13/19 01/22/19 Unknown History Coreg 3.125 mg PO BID 01/13/19 01/22/19 Unknown History Crestor 5 mg PO DAILY 01/13/19 01/22/19 Unknown History Lasix TAB 40 mg PO DAILY 01/13/19 01/22/19 Unknown History Losartan 100 mg PO DAILY 01/13/19 01/22/19 Unknown History Procardia Xl 60 mg PO DAILY 01/13/19 01/22/19 Unknown History Spironolactone 25 mg PO DAILY 01/13/19 01/22/19 Unknown History Citalopram [celeXA] 10 mg PO QDAY tablet 01/22/19 01/22/19 Unknown Rx Melatonin [Melatonin 5MG TAB] 5 mg PO QHS tablet 01/22/19 01/22/19 Unknown Rx Mirtazapine [Remeron 15mg TAB] 7.5 mg PO QHS tablet 01/22/19 01/22/19 Unknown Rx risperiDONE [RisperDAL] 0.5 mg PO BID tablet 01/22/19 01/22/19 Unknown Rx traZODone [Desyrel] 50 mg PO QHS PRN tablet 01/22/19 01/22/19 Unknown Rx Active Medications: Generic Name Dose Route Start Last Admin Trade Name Freq PRN Reason Stop Dose Admin Acetaminophen 650 mg 01/22/19 17:19 Tylenol PO Q4H PRN Pain MILD(1-3)/Fever >100.5/PALMA Aspirin 81 mg 01/23/19 10:00 01/25/19 09:03 Baby Aspirin PO 81 mg DAILY NICKY Administration Atorvastatin Calcium 10 mg 01/23/19 22:00 01/24/19 22:32 Lipitor PO 10 mg QHS NICKY Administration Carvedilol 3.125 mg 01/22/19 22:15 01/25/19 09:00 Coreg PO 3.125 mg BID NICKY Administration Citalopram Hydrobromide 10 mg 01/23/19 10:00 01/25/19 09:01 Celexa PO 10 mg QDAY NICKY Administration Heparin Sodium (Porcine) 5,000 unit 01/22/19 22:00 01/25/19 09:02 Heparin SUB-Q 5,000 unit Q12HR NICKY Administration Hydralazine HCl 50 mg 01/22/19 23:00 01/25/19 05:33 Apresoline PO 50 mg Q8HR NICKY Administration Hydralazine HCl 20 mg 01/22/19 22:10 Apresoline IV Q4H PRN SBP>170 or DBP>110 Sodium Chloride 1,000 mls @ 75 mls/hr 01/22/19 18:00 01/23/19 19:42 Nacl 0.9% 1000 Ml IV 75 mls/hr DIRECT NICKY Administration Melatonin 5 mg 01/22/19 23:00 01/24/19 22:31 Melatonin PO 5 mg QHS NICKY Administration Mirtazapine 7.5 mg 01/22/19 23:00 01/24/19 22:31 Remeron PO 7.5 mg QHS NICKY Administration Ondansetron HCl 4 mg 01/22/19 17:19 Zofran IV Q8H PRN Nausea And Vomiting Risperidone 0.5 mg 01/22/19 23:00 01/25/19 09:02 Risperdal PO 0.5 mg BID NICKY Administration Sodium Chloride 10 ml 01/22/19 22:00 01/25/19 09:12 Sodium Chloride Flush Syringe 10 Ml IV Not Given BID NICKY Sodium Chloride 10 ml 01/22/19 17:19 Sodium Chloride Flush Syringe 10 Ml IV PRN PRN LINE FLUSH Trazodone HCl 50 mg 01/22/19 22:06 01/24/19 22:32 Desyrel PO 50 mg QHS PRN Administration insomnia
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
[2019-01-25] MEDS: NACL 0.9% 1000 ML 1,000 ML IV SCH (15:43)
[2019-01-25] MEDS ORDERED: MELATONIN PO PRN (15:45)
[2019-01-25] MEDS ORDERED: ARICEPT PO SCH (22:00)
[2019-01-25] MEDS: ARICEPT PO SCH (22:11)
[2019-01-25] MEDS: REMERON PO SCH (22:13)
[2019-01-26 05:23] LABS: Calcium 8.9 mg/dL (8.4-10.2)
[2019-01-26] MEDS: APRESOLINE PO SCH ×3 (06:16→21:55)
[2019-01-26] MEDS: HEPARIN SUB-Q SCH ×2 (09:59→21:56)
[2019-01-26] MEDS: RisperDAL PO SCH ×2 (09:59→21:53)
[2019-01-26] MEDS: COREG PO SCH ×2 (09:59→21:55)
[2019-01-26] MEDS: BABY ASPIRIN PO SCH (09:59)
[2019-01-26] MEDS: SODIUM CHLORIDE FLUSH SYRINGE 10 ML IV SCH ×2 (10:00→21:58)
[2019-01-26 10:46] LABS: Chol/HDL Ratio 1.67 %
--- NOTE | 2019-01-26 11:24 | Progress Note ---
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 Full code status Discussed with 2 daughters on 01/23/19 PT eval Psych following History Interval history: patient gets agitated on and off No fever Hospitalist Physical - Physical exam Narrative exam: Gen: Not in acute distress, sitting up in chair HEENT: Cataracts. atraumatic Neck: supple, no JVD Heart: S1 and S2 reg, no murmurs, rubs or gallop Lungs: Clear, no crackles, no rhonchi Abd: soft, non tender, non distended, normal BS, Ext: No edema, no clubbing, no cyanosis Neuro: Awake, confused, dementia - Constitutional Vitals: Temp Pulse Resp BP Pulse Ox 98.8 F 73 18 156/65 96 01/26/19 07:30 01/26/19 10:00 01/26/19 07:30 01/26/19 07:30 01/26/19 07:30 Results - Labs CBC & Chem 7: 01/25/19 04:40 01/27/19 04:30 Labs: Laboratory Last Values WBC 6.2 K/mm3 (4.5-11.0) 01/25/19 04:40 RBC 3.99 M/mm3 (3.65-5.03) 01/25/19 04:40 Hgb 11.2 gm/dl (10.1-14.3) 01/25/19 04:40 Hct 33.0 % (30.3-42.9) 01/25/19 04:40 MCV 83 fl (79-97) 01/25/19 04:40 MCH 28 pg (28-32) 01/25/19 04:40 MCHC 34 % (30-34) 01/25/19 04:40 RDW 14.3 % (13.2-15.2) 01/25/19 04:40 Plt Count 223 K/mm3 (140-440) 01/25/19 04:40 Lymph % (Auto) 5.4 % (13.4-35.0) L 01/23/19 05:30 Mason % (Auto) 4.7 % (0.0-7.3) 01/23/19 05:30 Eos % (Auto) 0.0 % (0.0-4.3) 01/23/19 05:30 Baso % (Auto) 0.1 % (0.0-1.8) 01/23/19 05:30 Lymph # 0.9 K/mm3 (1.2-5.4) L 01/23/19 05:30 Mason # 0.8 K/mm3 (0.0-0.8) 01/23/19 05:30 Eos # 0.0 K/mm3 (0.0-0.4) 01/23/19 05:30 Baso # 0.0 K/mm3 (0.0-0.1) 01/23/19 05:30 Seg Neutrophils % 89.8 % (40.0-70.0) H 01/23/19 05:30 Seg Neutrophils # 15.7 K/mm3 (1.8-7.7) H 01/23/19 05:30 Sodium 141 mmol/L (137-145) 01/26/19 04:17 Potassium 4.7 mmol/L (3.6-5.0) 01/26/19 04:17 Chloride 107.9 mmol/L (98-107) H 01/26/19 04:17 Carbon Dioxide 23 mmol/L (22-30) 01/26/19 04:17 15 mmol/L 01/26/19 04:17 BUN 32 mg/dL (7-17) H 01/26/19 04:17 1.5 mg/dL (0.7-1.2) H 01/26/19 04:17 Estimated GFR 33 ml/min 01/26/19 04:17 21 % 01/26/19 04:17 Glucose 103 mg/dL (65-100) H 01/26/19 04:17 POC Glucose 100 (70-105) 01/26/19 07:36 Calcium 8.9 mg/dL (8.4-10.2) 01/26/19 04:17 Triglycerides 41 mg/dL (2-149) 01/26/19 04:17 Cholesterol 124 mg/dL (50-199) 01/26/19 04:17 50 mg/dL (50-130) 01/26/19 04:17 74 mg/dL (40-59) H 01/26/19 04:17 1.67 % 01/26/19 04:17 Yellow (Yellow) 01/23/19 16:55 Clear (Clear) 01/23/19 16:55 6.0 (5.0-7.0) 01/23/19 16:55 Ur Specific [place] 1.011 (1.003-1.030) 01/23/19 16:55 <15 mg/dl mg/dL (Negative) 01/23/19 16:55 Neg mg/dL (Negative) 01/23/19 16:55 Neg mg/dL (Negative) 01/23/19 16:55 Neg (Negative) 01/23/19 16:55 Neg (Negative) 01/23/19 16:55 Neg (Negative) 01/23/19 16:55 < 2.0 mg/dL (<2.0) 01/23/19 16:55 Ur Leukocyte Esterase Tr (Negative) 01/23/19 16:55 4.0 /HPF (0.0-6.0) 01/23/19 16:55 < 1.0 /HPF (0.0-6.0) 01/23/19 16:55 U Epithel Cells (Auto) 2.0 /HPF (0-13.0) 01/23/19 16:55 1+ /HPF (Negative) 01/23/19 16:55 Few /HPF 01/23/19 16:55 95.0 mg/dL (0.1-20.0) H 01/23/19 16:55 33 mmol/L 01/23/19 16:55 15 mg/dL (5-11.8) H 01/23/19 16:55 Active Medications - Current Medications Current Medications: Generic Name Dose Route Start Last Admin Trade Name Freq PRN Reason Stop Dose Admin Acetaminophen 650 mg 01/22/19 17:19 Tylenol PO Q4H PRN Pain MILD(1-3)/Fever >100.5/PALMA Aspirin 81 mg 01/23/19 10:00 01/26/19 09:59 Baby Aspirin PO 81 mg DAILY NICKY Administration Atorvastatin Calcium 10 mg 01/23/19 22:00 01/25/19 22:03 Lipitor PO 10 mg QHS NICKY Administration Carvedilol 3.125 mg 01/22/19 22:15 01/26/19 09:59 Coreg PO 3.125 mg BID NICKY Administration Donepezil HCl 5 mg 01/25/19 22:00 01/25/19 22:11 Aricept PO 5 mg QHS NICKY Administration Heparin Sodium (Porcine) 5,000 unit 01/22/19 22:00 01/26/19 09:59 Heparin SUB-Q 5,000 unit Q12HR NICKY Administration Hydralazine HCl 50 mg 01/22/19 23:00 01/26/19 06:16 Apresoline PO 50 mg Q8HR NICKY Administration Hydralazine HCl 20 mg 01/22/19 22:10 Apresoline IV Q4H PRN SBP>170 or DBP>110 Sodium Chloride 1,000 mls @ 100 mls/hr 01/22/19 18:00 01/25/19 15:43 Nacl 0.9% 1000 Ml IV 75 mls/hr DIRECT NICKY Administration Melatonin 5 mg 01/25/19 15:45 Melatonin PO QHS PRN Sleep Mirtazapine 7.5 mg 01/22/19 23:00 01/25/19 22:13 Remeron PO 7.5 mg QHS NICKY Administration Ondansetron HCl 4 mg 01/22/19 17:19 Zofran IV Q8H PRN Nausea And Vomiting Risperidone 0.5 mg 01/22/19 23:00 01/26/19 09:59 Risperdal PO 0.5 mg BID NICKY Administration Sodium Chloride 10 ml 01/22/19 22:00 01/26/19 10:00 Sodium Chloride Flush Syringe 10 Ml IV 10 ml BID NICKY Administration Sodium Chloride 10 ml 01/22/19 17:19 Sodium Chloride Flush Syringe 10 Ml IV PRN PRN LINE FLUSH
--- NOTE | 2019-01-26 11:36 | Progress Note ---
Assessment and Plan - Patient Problems (1) Acute kidney injury Current Visit: Yes Status: Acute Plan to address problem: JASON likely due to pre-renal azotemia in the setting of vomiting and concurrent treatment with lasix/spironolactone and ARB. FeNA ~0.4%. UA without hematuria/proteinuria to suggest acute glomerular injury. cont hold lasix/spironolacton and ARB for now, especially given low BP. cont IV NS at 75ml/hr. Will monitor lytes/renal parameters and make further recommendations (2) Leukocytosis Current Visit: Yes Status: Acute Plan to address problem: resolved. BCx NGTD (3) Major neurocognitive disorder due to Alzheimer's disease, probable, with behavioral disturbance Current Visit: No Status: Acute Plan to address problem: follow pyschiatrist recommendations (4) Vomiting Current Visit: Yes Status: Acute Subjective Date of service: 01/26/19 Principal diagnosis: JASON Interval history: Patient awake, non-verbal, in NAD Objective - Vital Signs Vital signs: Vital Signs - 12hr 01/26/19 01/26/19 01/26/19 01:55 06:13 06:16 Temperature 98.2 F Pulse Rate 83 62 Respiratory 18 Rate Blood Pressure 154/70 140/62 140/62 O2 Sat by Pulse 96 Oximetry 01/26/19 01/26/19 07:30 10:00 Temperature 98.8 F Pulse Rate 73 73 Respiratory 18 Rate Blood Pressure 156/65 O2 Sat by Pulse 96 Oximetry - General Appearance General appearance: well-developed, well-nourished, appears stated age EENT: ATNC, PERRL, mucous membranes moist Neck: no JVD Respiratory: Present: Clear to Ascultation Cardiology: regular, S1S2 Gastrointestinal: normoactive bowel sounds Integumentary: no rash, other (no edema ) Neurologic: confused, disoriented - Lab 01/25/19 04:40 01/26/19 04:17 Most recent lab results Calcium 8.9 mg/dL (8.4-10.2) 01/26/19 04:17 95.0 mg/dL (0.1-20.0) H 01/23/19 16:55 33 mmol/L 01/23/19 16:55 15 mg/dL (5-11.8) H 01/23/19 16:55 Medications & Allergies - Medications Allergies/Adverse Reactions: Allergies No Known Allergies Allergy (Verified 01/13/19 05:10) Home Medications: Home Medications Medication Instructions Recorded Confirmed Last Taken Type Aspirin 81 mg PO DAILY 01/13/19 01/22/19 Unknown History Coreg 3.125 mg PO BID 01/13/19 01/22/19 Unknown History Crestor 5 mg PO DAILY 01/13/19 01/22/19 Unknown History Lasix TAB 40 mg PO DAILY 01/13/19 01/22/19 Unknown History Losartan 100 mg PO DAILY 01/13/19 01/22/19 Unknown History Procardia Xl 60 mg PO DAILY 01/13/19 01/22/19 Unknown History Spironolactone 25 mg PO DAILY 01/13/19 01/22/19 Unknown History Citalopram [celeXA] 10 mg PO QDAY tablet 01/22/19 01/22/19 Unknown Rx Melatonin [Melatonin 5MG TAB] 5 mg PO QHS tablet 01/22/19 01/22/19 Unknown Rx Mirtazapine [Remeron 15mg TAB] 7.5 mg PO QHS tablet 01/22/19 01/22/19 Unknown Rx risperiDONE [RisperDAL] 0.5 mg PO BID tablet 01/22/19 01/22/19 Unknown Rx traZODone [Desyrel] 50 mg PO QHS PRN tablet 01/22/19 01/22/19 Unknown Rx Active Medications: Generic Name Dose Route Start Last Admin Trade Name Freq PRN Reason Stop Dose Admin Acetaminophen 650 mg 01/22/19 17:19 Tylenol PO Q4H PRN Pain MILD(1-3)/Fever >100.5/PALMA Aspirin 81 mg 01/23/19 10:00 01/26/19 09:59 Baby Aspirin PO 81 mg DAILY NICKY Administration Atorvastatin Calcium 10 mg 01/23/19 22:00 01/25/19 22:03 Lipitor PO 10 mg QHS NICKY Administration Carvedilol 3.125 mg 01/22/19 22:15 01/26/19 09:59 Coreg PO 3.125 mg BID NICKY Administration Donepezil HCl 5 mg 01/25/19 22:00 01/25/19 22:11 Aricept PO 5 mg QHS NICKY Administration Heparin Sodium (Porcine) 5,000 unit 01/22/19 22:00 01/26/19 09:59 Heparin SUB-Q 5,000 unit Q12HR NICKY Administration Hydralazine HCl 50 mg 01/22/19 23:00 01/26/19 06:16 Apresoline PO 50 mg Q8HR NICKY Administration Hydralazine HCl 20 mg 01/22/19 22:10 Apresoline IV Q4H PRN SBP>170 or DBP>110 Sodium Chloride 1,000 mls @ 100 mls/hr 01/22/19 18:00 01/25/19 15:43 Nacl 0.9% 1000 Ml IV 75 mls/hr DIRECT NICKY Administration Melatonin 5 mg 01/25/19 15:45 Melatonin PO QHS PRN Sleep Mirtazapine 7.5 mg 01/22/19 23:00 01/25/19 22:13 Remeron PO 7.5 mg QHS NICKY Administration Ondansetron HCl 4 mg 01/22/19 17:19 Zofran IV Q8H PRN Nausea And Vomiting Risperidone 0.5 mg 01/22/19 23:00 01/26/19 09:59 Risperdal PO 0.5 mg BID NICKY Administration Sodium Chloride 10 ml 01/22/19 22:00 01/26/19 10:00 Sodium Chloride Flush Syringe 10 Ml IV 10 ml BID NICKY Administration Sodium Chloride 10 ml 01/22/19 17:19 Sodium Chloride Flush Syringe 10 Ml IV PRN PRN LINE FLUSH
[2019-01-26] MEDS: REMERON PO SCH (21:54)
[2019-01-26] MEDS: ARICEPT PO SCH (21:57)
[2019-01-27 04:53] LABS: Calcium 8.6 mg/dL (8.4-10.2)
[2019-01-27] MEDS: APRESOLINE PO SCH ×3 (05:28→22:10)
--- NOTE | 2019-01-27 08:51 | Progress Note ---
Subjective - Reason for Consult Consult date: 01/27/19 Reason for consult: Psychiatric Follow-up Evaluation - Chief Complaint Chief complaint: " I'm okay" Patient is a 83 y.o. AA female who was on the 5th floor for psy stabilization. The patient is now on the floor for medical stabilization. Psychiatry was consulted for medication mgmt. Today the patient is calm during the assessment. She was guarded and her answers to all questions were not logical. She continues to confused. She is alert and oriented x 1. Patient thought content is impoverished. Per the record, the patient has a hx of dementia. Mental Status Exam - Vital signs Last Vital Signs Temp 98.6 F 01/27/19 07:51 Pulse 75 01/27/19 07:51 Resp 18 01/27/19 07:51 BP 96/38 01/27/19 07:51 Pulse Ox 99 01/27/19 07:51 - Exam Narrative exam: Unable to complete the MSE because of the patient's condition. Assessment and Plan Impression: Dementia per the record. Today the patient is calm during the assessment. She continues to be confused. She is alert and oriented x 1. DDx: R/O Delirium Recommendation/Plan: 1. Continue remeron 7.5 mg PO HS for sleep, Risperdal 0.5 mg PO BID for psychosis, and modify Melatonin 5 mg PO to PRN for sleep. Start Aricept 5 mg PO HS for dementia symptoms. Discussed possible metabolic side effects of Risperdal with the patient's 2 daughters, they verbalized understanding. Baseline A1c/Lipid Panel ordered for the AM. Disposition: The patient's family are considering to take care of their mother at home once discharged. Discussed with the family the benefits of a memory unit for the patient. Will staff with Dr. Tavia Cherry.
[2019-01-27] MEDS: HEPARIN SUB-Q SCH ×2 (09:51→22:11)
[2019-01-27] MEDS: COREG PO SCH ×2 (09:51→22:09)
[2019-01-27] MEDS: RisperDAL PO SCH ×2 (09:51→22:10)
[2019-01-27] MEDS: BABY ASPIRIN PO SCH (09:51)
[2019-01-27] MEDS: SODIUM CHLORIDE FLUSH SYRINGE 10 ML IV SCH ×2 (09:52→22:12)
[2019-01-27] MEDS: NACL 0.9% 1000 ML 1,000 ML IV SCH ×2 (09:52→22:23)
--- NOTE | 2019-01-27 10:34 | Progress Note ---
Assessment and Plan - Patient Problems (1) Acute kidney injury Current Visit: Yes Status: Acute Plan to address problem: JASON likely due to pre-renal azotemia in the setting of vomiting and concurrent treatment with lasix/spironolactone and ARB. FeNA ~0.4%. UA without hematuria/proteinuria to suggest acute glomerular injury. cont hold lasix/spironolacton and ARB for now, especially given low BP. cont IV NS at 75ml/hr. Will monitor lytes/renal parameters and make further recommendations (2) Leukocytosis Current Visit: Yes Status: Acute Plan to address problem: resolved. BCx NGTD (3) Major neurocognitive disorder due to Alzheimer's disease, probable, with behavioral disturbance Current Visit: No Status: Acute Plan to address problem: follow pyschiatrist recommendations (4) Vomiting Current Visit: Yes Status: Acute Plan to address problem: resolved Subjective Date of service: 01/27/19 Principal diagnosis: JASON Interval history: Patient awake, alert, oriented to person, place, but not time, in no acute distress Objective - Vital Signs Vital signs: Vital Signs - 12hr 01/27/19 01/27/19 01/27/19 01:40 03:00 05:11 Temperature 101.9 F H 99 F Pulse Rate Respiratory 18 Rate Blood Pressure 120/55 115/67 O2 Sat by Pulse Oximetry 01/27/19 01/27/19 01/27/19 05:27 05:28 06:27 Temperature Pulse Rate 68 Respiratory 18 18 Rate Blood Pressure 118/67 O2 Sat by Pulse Oximetry 01/27/19 01/27/19 07:51 09:35 Temperature 98.6 F Pulse Rate 75 Respiratory 18 Rate Blood Pressure 96/38 105/44 O2 Sat by Pulse 99 Oximetry - General Appearance General appearance: well-developed, well-nourished, appears stated age EENT: ATNC, PERRL, mucous membranes moist Neck: no JVD Respiratory: Present: Clear to Ascultation Cardiology: regular, S1S2 Gastrointestinal: normoactive bowel sounds Integumentary: no rash Neurologic: no focal deficit, alert and oriented x3, strength 5/5, CN 3-12 intact Psychiatric: mood/affect appropriate, cooperative - Lab 01/25/19 04:40 01/27/19 04:30 Most recent lab results Calcium 8.6 mg/dL (8.4-10.2) 01/27/19 04:30 95.0 mg/dL (0.1-20.0) H 01/23/19 16:55 33 mmol/L 01/23/19 16:55 15 mg/dL (5-11.8) H 01/23/19 16:55 Medications & Allergies - Medications Allergies/Adverse Reactions: Allergies No Known Allergies Allergy (Verified 01/13/19 05:10) Home Medications: Home Medications Medication Instructions Recorded Confirmed Last Taken Type Aspirin 81 mg PO DAILY 01/13/19 01/22/19 Unknown History Coreg 3.125 mg PO BID 01/13/19 01/22/19 Unknown History Crestor 5 mg PO DAILY 01/13/19 01/22/19 Unknown History Lasix TAB 40 mg PO DAILY 01/13/19 01/22/19 Unknown History Losartan 100 mg PO DAILY 01/13/19 01/22/19 Unknown History Procardia Xl 60 mg PO DAILY 01/13/19 01/22/19 Unknown History Spironolactone 25 mg PO DAILY 01/13/19 01/22/19 Unknown History Citalopram [celeXA] 10 mg PO QDAY tablet 01/22/19 01/22/19 Unknown Rx Melatonin [Melatonin 5MG TAB] 5 mg PO QHS tablet 01/22/19 01/22/19 Unknown Rx Mirtazapine [Remeron 15mg TAB] 7.5 mg PO QHS tablet 01/22/19 01/22/19 Unknown Rx risperiDONE [RisperDAL] 0.5 mg PO BID tablet 01/22/19 01/22/19 Unknown Rx traZODone [Desyrel] 50 mg PO QHS PRN tablet 01/22/19 01/22/19 Unknown Rx Active Medications: Generic Name Dose Route Start Last Admin Trade Name Freq PRN Reason Stop Dose Admin Acetaminophen 650 mg 01/22/19 17:19 01/27/19 05:27 Tylenol PO 650 mg Q4H PRN Administration Pain MILD(1-3)/Fever >100.5/PALMA Aspirin 81 mg 01/23/19 10:00 01/27/19 09:51 Baby Aspirin PO 81 mg DAILY NICKY Administration Atorvastatin Calcium 10 mg 01/23/19 22:00 01/26/19 21:55 Lipitor PO 10 mg QHS NICKY Administration Carvedilol 3.125 mg 01/22/19 22:15 01/27/19 09:51 Coreg PO 3.125 mg BID NICKY Administration Donepezil HCl 5 mg 01/25/19 22:00 01/26/19 21:57 Aricept PO 5 mg QHS NICKY Administration Heparin Sodium (Porcine) 5,000 unit 01/22/19 22:00 01/27/19 09:51 Heparin SUB-Q 5,000 unit Q12HR NICKY Administration Hydralazine HCl 50 mg 01/22/19 23:00 01/27/19 05:28 Apresoline PO 50 mg Q8HR NICKY Administration Hydralazine HCl 20 mg 01/22/19 22:10 Apresoline IV Q4H PRN SBP>170 or DBP>110 Sodium Chloride 1,000 mls @ 100 mls/hr 01/22/19 18:00 01/27/19 09:52 Nacl 0.9% 1000 Ml IV 75 mls/hr DIRECT NICKY Administration Melatonin 5 mg 01/25/19 15:45 Melatonin PO QHS PRN Sleep Mirtazapine 7.5 mg 01/22/19 23:00 01/26/19 21:54 Remeron PO 7.5 mg QHS NICKY Administration Ondansetron HCl 4 mg 01/22/19 17:19 Zofran IV Q8H PRN Nausea And Vomiting Risperidone 0.5 mg 01/22/19 23:00 01/27/19 09:51 Risperdal PO 0.5 mg BID NICKY Administration Sodium Chloride 10 ml 01/22/19 22:00 01/27/19 09:52 Sodium Chloride Flush Syringe 10 Ml IV 10 ml BID NICKY Administration Sodium Chloride 10 ml 01/22/19 17:19 Sodium Chloride Flush Syringe 10 Ml IV PRN PRN LINE FLUSH
--- NOTE | 2019-01-27 12:26 | Progress Note ---
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 Full code status Discussed with 2 daughters on 01/23/19 PT ongoing Psych following Poss dc tomorrow History Interval history: patient gets agitated on and off No fever More alert, more responsive Hospitalist Physical - Physical exam Narrative exam: Gen: Not in acute distress, lying in bed HEENT: Cataracts. atraumatic Neck: supple, no JVD Heart: S1 and S2 reg, no murmurs, rubs or gallop Lungs: Clear, no crackles, no rhonchi Abd: soft, non tender, non distended, normal BS, Ext: No edema, no clubbing, no cyanosis Neuro: Awake, more alert, dementia, poor hearing,poor vision - Constitutional Vitals: Temp Pulse Resp BP Pulse Ox 98.6 F 75 18 105/44 99 01/27/19 07:51 01/27/19 10:00 01/27/19 07:51 01/27/19 09:35 01/27/19 07:51 Results - Labs CBC & Chem 7: 01/25/19 04:40 01/27/19 04:30 Labs: Laboratory Last Values WBC 6.2 K/mm3 (4.5-11.0) 01/25/19 04:40 RBC 3.99 M/mm3 (3.65-5.03) 01/25/19 04:40 Hgb 11.2 gm/dl (10.1-14.3) 01/25/19 04:40 Hct 33.0 % (30.3-42.9) 01/25/19 04:40 MCV 83 fl (79-97) 01/25/19 04:40 MCH 28 pg (28-32) 01/25/19 04:40 MCHC 34 % (30-34) 01/25/19 04:40 RDW 14.3 % (13.2-15.2) 01/25/19 04:40 Plt Count 223 K/mm3 (140-440) 01/25/19 04:40 Lymph % (Auto) 5.4 % (13.4-35.0) L 01/23/19 05:30 Sac % (Auto) 4.7 % (0.0-7.3) 01/23/19 05:30 Eos % (Auto) 0.0 % (0.0-4.3) 01/23/19 05:30 Baso % (Auto) 0.1 % (0.0-1.8) 01/23/19 05:30 Lymph # 0.9 K/mm3 (1.2-5.4) L 01/23/19 05:30 Sac # 0.8 K/mm3 (0.0-0.8) 01/23/19 05:30 Eos # 0.0 K/mm3 (0.0-0.4) 01/23/19 05:30 Baso # 0.0 K/mm3 (0.0-0.1) 01/23/19 05:30 Seg Neutrophils % 89.8 % (40.0-70.0) H 01/23/19 05:30 Seg Neutrophils # 15.7 K/mm3 (1.8-7.7) H 01/23/19 05:30 Sodium 141 mmol/L (137-145) 01/27/19 04:30 Potassium 4.4 mmol/L (3.6-5.0) 01/27/19 04:30 Chloride 107.3 mmol/L (98-107) H 01/27/19 04:30 Carbon Dioxide 22 mmol/L (22-30) 01/27/19 04:30 16 mmol/L 01/27/19 04:30 BUN 30 mg/dL (7-17) H 01/27/19 04:30 1.6 mg/dL (0.7-1.2) H 01/27/19 04:30 Estimated GFR 31 ml/min 01/27/19 04:30 19 % 01/27/19 04:30 Glucose 98 mg/dL (65-100) 01/27/19 04:30 POC Glucose 121 (70-105) H 01/27/19 11:20 Calcium 8.6 mg/dL (8.4-10.2) 01/27/19 04:30 Triglycerides 41 mg/dL (2-149) 01/26/19 04:17 Cholesterol 124 mg/dL (50-199) 01/26/19 04:17 50 mg/dL (50-130) 01/26/19 04:17 74 mg/dL (40-59) H 01/26/19 04:17 1.67 % 01/26/19 04:17 Yellow (Yellow) 01/23/19 16:55 Clear (Clear) 01/23/19 16:55 6.0 (5.0-7.0) 01/23/19 16:55 Ur Specific [place] 1.011 (1.003-1.030) 01/23/19 16:55 <15 mg/dl mg/dL (Negative) 01/23/19 16:55 Neg mg/dL (Negative) 01/23/19 16:55 Neg mg/dL (Negative) 01/23/19 16:55 Neg (Negative) 01/23/19 16:55 Neg (Negative) 01/23/19 16:55 Neg (Negative) 01/23/19 16:55 < 2.0 mg/dL (<2.0) 01/23/19 16:55 Ur Leukocyte Esterase Tr (Negative) 01/23/19 16:55 4.0 /HPF (0.0-6.0) 01/23/19 16:55 < 1.0 /HPF (0.0-6.0) 01/23/19 16:55 U Epithel Cells (Auto) 2.0 /HPF (0-13.0) 01/23/19 16:55 1+ /HPF (Negative) 01/23/19 16:55 Few /HPF 01/23/19 16:55 95.0 mg/dL (0.1-20.0) H 01/23/19 16:55 33 mmol/L 01/23/19 16:55 15 mg/dL (5-11.8) H 01/23/19 16:55 Active Medications - Current Medications Current Medications: Generic Name Dose Route Start Last Admin Trade Name Freq PRN Reason Stop Dose Admin Acetaminophen 650 mg 01/22/19 17:19 01/27/19 05:27 Tylenol PO 650 mg Q4H PRN Administration Pain MILD(1-3)/Fever >100.5/PALMA Aspirin 81 mg 01/23/19 10:00 01/27/19 09:51 Baby Aspirin PO 81 mg DAILY NICKY Administration Atorvastatin Calcium 10 mg 01/23/19 22:00 01/26/19 21:55 Lipitor PO 10 mg QHS NICKY Administration Carvedilol 3.125 mg 01/22/19 22:15 01/27/19 09:51 Coreg PO 3.125 mg BID NICKY Administration Donepezil HCl 5 mg 01/25/19 22:00 01/26/19 21:57 Aricept PO 5 mg QHS NICKY Administration Heparin Sodium (Porcine) 5,000 unit 01/22/19 22:00 01/27/19 09:51 Heparin SUB-Q 5,000 unit Q12HR NICKY Administration Hydralazine HCl 50 mg 01/22/19 23:00 01/27/19 05:28 Apresoline PO 50 mg Q8HR NICKY Administration Hydralazine HCl 20 mg 01/22/19 22:10 Apresoline IV Q4H PRN SBP>170 or DBP>110 Sodium Chloride 1,000 mls @ 100 mls/hr 01/22/19 18:00 01/27/19 09:52 Nacl 0.9% 1000 Ml IV 75 mls/hr DIRECT NICKY Administration Melatonin 5 mg 01/25/19 15:45 Melatonin PO QHS PRN Sleep Mirtazapine 7.5 mg 01/22/19 23:00 01/26/19 21:54 Remeron PO 7.5 mg QHS NICKY Administration Ondansetron HCl 4 mg 01/22/19 17:19 Zofran IV Q8H PRN Nausea And Vomiting Risperidone 0.5 mg 01/22/19 23:00 01/27/19 09:51 Risperdal PO 0.5 mg BID NICKY Administration Sodium Chloride 10 ml 01/22/19 22:00 01/27/19 09:52 Sodium Chloride Flush Syringe 10 Ml IV 10 ml BID NICKY Administration Sodium Chloride 10 ml 01/22/19 17:19 Sodium Chloride Flush Syringe 10 Ml IV PRN PRN LINE FLUSH
[2019-01-27] MEDS: REMERON PO SCH (22:11)
[2019-01-27] MEDS: ARICEPT PO SCH (22:11)
[2019-01-28 05:05] LABS: Calcium 7.9 mg/dL (8.4-10.2)
[2019-01-28] MEDS: APRESOLINE PO SCH ×3 (06:22→22:01)
[2019-01-28] MEDS: RisperDAL PO SCH ×2 (09:06→22:11)
[2019-01-28] MEDS: BABY ASPIRIN PO SCH (09:06)
[2019-01-28] MEDS: COREG PO SCH ×2 (09:06→22:09)
[2019-01-28] MEDS: HEPARIN SUB-Q SCH ×2 (09:26→21:58)
[2019-01-28] MEDS: SODIUM CHLORIDE FLUSH SYRINGE 10 ML IV SCH ×2 (09:40→22:11)
--- NOTE | 2019-01-28 10:36 | Progress Note ---
Subjective - Reason for Consult Consult date: 01/28/19 Reason for consult: Psychiatry Follow-up - Chief Complaint Chief complaint: "I'm a young lady"" 83 y.o. AA female who was on the 5th floor for psy stabilization. The patient is now on the floor for medical stabilization. Psychiatry was consulted for medication mgmt. Today the patient is calm, but confused during the assessment. She answered most questions by saying "I'm a young lady." Per the staff, no behavioral disturbances overnight. No indications of side effects from her medications. Mental Status Exam - Vital signs Last Vital Signs Temp 98.2 F 01/28/19 07:24 Pulse 74 01/28/19 09:06 Resp 18 01/28/19 07:24 BP 139/60 01/28/19 09:06 Pulse Ox 97 01/28/19 07:24 - Exam Narrative exam: Unable to complete the assessment because of the patient's condition. Assessment and Plan Impression: Dementia per the record. Today the patient was calm, but confused during the assessment. Hearing/Vision impairment. Cr 1.5. DDx: R/O Delirium Recommendation/Plan: Continue remeron 7.5 mg PO HS for sleep, Risperdal 0.5 mg PO BID for psychosis, and modify Melatonin 5 mg PO to PRN for sleep. Start Aricept 5 mg PO HS for dementia symptoms. Discussed possible metabolic side effects of Risperdal with the patient's 2 daughters, they verbalized understanding. Recommendation/Plan: Recommend Delirium precautions below: 1. Frequently reorient patient and involve him/her in their care (simple explanations of procedures, tests, medications). 2. Lights on and shades open during daytime hours. 3. Write date and goals of care in a visible place. 4. Try to avoid unnecessary interruptions to sleep during nighttime hours. 5. Obtain glasses, hearing aids from home if patient uses these at baseline. 6. Avoid medications that may exacerbate delirium (especially narcotics, benzodiazepines, barbiturates, ambien, lunesta, and medications with excessive anticholinergic property). Dispo: The patient's family are considering to take care of their mother at home once discharged. Discussed with the family the benefits of a memory unit for the patient. Will staff with Dr Tavia Cherry.
--- NOTE | 2019-01-28 11:24 | Progress Note ---
Assessment and Plan - Patient Problems (1) Acute kidney injury Current Visit: Yes Status: Acute Plan to address problem: Acute kidney injury prerenal azotemia secondary to vomiting with ongoing diuresis. Kidney function improving. Follow-up electrolytes and renal function (2) Leukocytosis Current Visit: Yes Status: Acute Plan to address problem: Fever with leukocytosis resolving. Blood cultures are negative so far (3) Delirium due to multiple etiologies Current Visit: No Status: Acute Plan to address problem: Mental status possibly back to her baseline (4) Major neurocognitive disorder due to Alzheimer's disease, probable, with behavioral disturbance Current Visit: No Status: Acute Plan to address problem: Management by psychiatrist Subjective Date of service: 01/28/19 Principal diagnosis: JASON Interval history: Patient seen lying in bed. She has no complaints. Memory is impaired. Objective - Exam Narrative Exam: Elderly -[place] female lying in bed in no acute distress HEENT: NCAT, pink oral mucous membrane Neck: Supple, no venous distention CVS: S1S2 irregular with stomach murmur, No rub or gallop Chest: Clear to auscultation Abdomen: Protuberant, soft, nontender, no organomegaly, bowel sounds are present Extremities: No edema Neuro: Awake, alert no focal deficits - Vital Signs Vital signs: Vital Signs - 12hr 01/28/19 01/28/19 01/28/19 02:18 02:20 06:00 Temperature 98.5 F Pulse Rate 99 H 88 Respiratory 18 Rate Blood Pressure 111/46 Blood Pressure 125/67 [Right] O2 Sat by Pulse 94 Oximetry 01/28/19 01/28/19 01/28/19 06:22 07:24 09:06 Temperature 98.2 F Pulse Rate 88 74 74 Respiratory 18 Rate Blood Pressure 125/67 139/60 139/60 Blood Pressure [Right] O2 Sat by Pulse 97 Oximetry 01/28/19 10:00 Temperature Pulse Rate Respiratory 18 Rate Blood Pressure Blood Pressure [Right] O2 Sat by Pulse 97 Oximetry - Lab 01/25/19 04:40 01/28/19 04:28 Most recent lab results Calcium 7.9 mg/dL (8.4-10.2) L 01/28/19 04:28 95.0 mg/dL (0.1-20.0) H 01/23/19 16:55 33 mmol/L 01/23/19 16:55 15 mg/dL (5-11.8) H 01/23/19 16:55 Medications & Allergies - Medications Allergies/Adverse Reactions: Allergies No Known Allergies Allergy (Verified 01/13/19 05:10) Home Medications: Home Medications Medication Instructions Recorded Confirmed Last Taken Type Aspirin 81 mg PO DAILY 01/13/19 01/22/19 Unknown History Coreg 3.125 mg PO BID 01/13/19 01/22/19 Unknown History Crestor 5 mg PO DAILY 01/13/19 01/22/19 Unknown History Lasix TAB 40 mg PO DAILY 01/13/19 01/22/19 Unknown History Losartan 100 mg PO DAILY 01/13/19 01/22/19 Unknown History Procardia Xl 60 mg PO DAILY 01/13/19 01/22/19 Unknown History Spironolactone 25 mg PO DAILY 01/13/19 01/22/19 Unknown History Citalopram [celeXA] 10 mg PO QDAY tablet 01/22/19 01/22/19 Unknown Rx Melatonin [Melatonin 5MG TAB] 5 mg PO QHS tablet 01/22/19 01/22/19 Unknown Rx Mirtazapine [Remeron 15mg TAB] 7.5 mg PO QHS tablet 01/22/19 01/22/19 Unknown Rx risperiDONE [RisperDAL] 0.5 mg PO BID tablet 01/22/19 01/22/19 Unknown Rx traZODone [Desyrel] 50 mg PO QHS PRN tablet 01/22/19 01/22/19 Unknown Rx Active Medications: Generic Name Dose Route Start Last Admin Trade Name Freq PRN Reason Stop Dose Admin Acetaminophen 650 mg 01/22/19 17:19 01/27/19 05:27 Tylenol PO 650 mg Q4H PRN Administration Pain MILD(1-3)/Fever >100.5/PALMA Aspirin 81 mg 01/23/19 10:00 01/28/19 09:06 Baby Aspirin PO 81 mg DAILY NICKY Administration Atorvastatin Calcium 10 mg 01/23/19 22:00 01/27/19 22:10 Lipitor PO 10 mg QHS NICKY Administration Carvedilol 3.125 mg 01/22/19 22:15 01/28/19 09:06 Coreg PO 3.125 mg BID NICKY Administration Donepezil HCl 5 mg 01/25/19 22:00 01/27/19 22:11 Aricept PO 5 mg QHS NICKY Administration Heparin Sodium (Porcine) 5,000 unit 01/22/19 22:00 01/28/19 09:26 Heparin SUB-Q 5,000 unit Q12HR NICKY Administration Hydralazine HCl 50 mg 01/22/19 23:00 01/28/19 06:22 Apresoline PO 50 mg Q8HR NICKY Administration Hydralazine HCl 20 mg 01/22/19 22:10 Apresoline IV Q4H PRN SBP>170 or DBP>110 Sodium Chloride 1,000 mls @ 100 mls/hr 01/22/19 18:00 01/27/19 22:23 Nacl 0.9% 1000 Ml IV 75 mls/hr DIRECT NICKY Administration Melatonin 5 mg 01/25/19 15:45 Melatonin PO QHS PRN Sleep Mirtazapine 7.5 mg 01/22/19 23:00 01/27/19 22:11 Remeron PO 7.5 mg QHS NICKY Administration Ondansetron HCl 4 mg 01/22/19 17:19 Zofran IV Q8H PRN Nausea And Vomiting Risperidone 0.5 mg 01/22/19 23:00 01/28/19 09:06 Risperdal PO 0.5 mg BID NICKY Administration Sodium Chloride 10 ml 01/22/19 22:00 01/28/19 09:40 Sodium Chloride Flush Syringe 10 Ml IV Not Given BID NICKY Sodium Chloride 10 ml 01/22/19 17:19 Sodium Chloride Flush Syringe 10 Ml IV PRN PRN LINE FLUSH
[2019-01-28] MEDS: NACL 0.9% 1000 ML 1,000 ML IV SCH (12:58)
[2019-01-28 17:32] LABS: Bilirubin,Urine NEG (Negative); Blood,Urine NEG (Negative); Color,Urine Yellow (Yellow); Protein,Urine <15 mg/dL mg/dL (Negative); Urobilinogen,Urine < 2.0 mg/dL (<2.0)
--- NOTE | 2019-01-28 18:42 | Progress Note ---
Assessment and Plan Assessment and plan: Patient is 83 yo with hypertension, CAD , history of stroke, dementia, behavioral changes. She was admitted to [facility] on 01/22/19. Rapid response called because she vomited once. She has dementia, agitation, poor hearing, cannot give much history. She was seen and evaluated. Labs drawn revealed Creatinine of 1.7. She was diagnosed with acute kidney injury, discharged from [facility] and admitted to [facility]. She was started on iv fluids, evaluated by nephrology. She improved slowly, Cr improved to 1.5. Her medications were adjusted by Psych and she has been more alert. however she had fever yesterday, therefore intended discharge canceled. Obtained blood cultures, UA, CXR and consult ID.. 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 Full code status Discussed with 2 daughters at bedside. PT ongoing Psych following History Interval history: patient gets agitated on and off Fever of 101.9 yesterday Hospitalist Physical - Physical exam Narrative exam: Gen: Not in acute distress, lying in bed HEENT: Cataracts. atraumatic Neck: supple, no JVD Heart: S1 and S2 reg, no murmurs, rubs or gallop Lungs: Clear, no crackles, no rhonchi Abd: soft, non tender, non distended, normal BS, Ext: No edema, no clubbing, no cyanosis Neuro: Awake, more alert, dementia, poor hearing,poor vision - Constitutional Vitals: Temp Pulse Resp BP Pulse Ox 99.7 F H 86 18 113/59 98 01/28/19 14:10 01/28/19 14:25 01/28/19 14:10 01/28/19 14:25 01/28/19 14:10 Results - Labs CBC & Chem 7: 01/25/19 04:40 01/28/19 04:28 Labs: Laboratory Last Values WBC 6.2 K/mm3 (4.5-11.0) 01/25/19 04:40 RBC 3.99 M/mm3 (3.65-5.03) 01/25/19 04:40 Hgb 11.2 gm/dl (10.1-14.3) 01/25/19 04:40 Hct 33.0 % (30.3-42.9) 01/25/19 04:40 MCV 83 fl (79-97) 01/25/19 04:40 MCH 28 pg (28-32) 01/25/19 04:40 MCHC 34 % (30-34) 01/25/19 04:40 RDW 14.3 % (13.2-15.2) 01/25/19 04:40 Plt Count 223 K/mm3 (140-440) 01/25/19 04:40 Lymph % (Auto) 5.4 % (13.4-35.0) L 01/23/19 05:30 [place] % (Auto) 4.7 % (0.0-7.3) 01/23/19 05:30 Eos % (Auto) 0.0 % (0.0-4.3) 01/23/19 05:30 Baso % (Auto) 0.1 % (0.0-1.8) 01/23/19 05:30 Lymph # 0.9 K/mm3 (1.2-5.4) L 01/23/19 05:30 [place] # 0.8 K/mm3 (0.0-0.8) 01/23/19 05:30 Eos # 0.0 K/mm3 (0.0-0.4) 01/23/19 05:30 Baso # 0.0 K/mm3 (0.0-0.1) 01/23/19 05:30 Seg Neutrophils % 89.8 % (40.0-70.0) H 01/23/19 05:30 Seg Neutrophils # 15.7 K/mm3 (1.8-7.7) H 01/23/19 05:30 Sodium 142 mmol/L (137-145) 01/28/19 04:28 Potassium 4.1 mmol/L (3.6-5.0) 01/28/19 04:28 Chloride 109.4 mmol/L (98-107) H 01/28/19 04:28 Carbon Dioxide 22 mmol/L (22-30) 01/28/19 04:28 15 mmol/L 01/28/19 04:28 BUN 28 mg/dL (7-17) H 01/28/19 04:28 1.5 mg/dL (0.7-1.2) H 01/28/19 04:28 Estimated GFR 33 ml/min 01/28/19 04:28 19 % 01/28/19 04:28 Glucose 89 mg/dL (65-100) 01/28/19 04:28 POC Glucose 131 (70-105) H 01/28/19 16:41 5.4 % (4-6) 01/27/19 12:02 Calcium 7.9 mg/dL (8.4-10.2) L 01/28/19 04:28 Triglycerides 41 mg/dL (2-149) 01/26/19 04:17 Cholesterol 124 mg/dL (50-199) 01/26/19 04:17 50 mg/dL (50-130) 01/26/19 04:17 74 mg/dL (40-59) H 01/26/19 04:17 1.67 % 01/26/19 04:17 Yellow (Yellow) 01/28/19 15:45 Clear (Clear) 01/28/19 15:45 6.0 (5.0-7.0) 01/28/19 15:45 Ur Specific [place] 1.011 (1.003-1.030) 01/28/19 15:45 <15 mg/dl mg/dL (Negative) 01/28/19 15:45 Neg mg/dL (Negative) 01/28/19 15:45 Neg mg/dL (Negative) 01/28/19 15:45 Neg (Negative) 01/28/19 15:45 Neg (Negative) 01/28/19 15:45 Neg (Negative) 01/28/19 15:45 < 2.0 mg/dL (<2.0) 01/28/19 15:45 Ur Leukocyte Esterase Tr (Negative) 01/28/19 15:45 3.0 /HPF (0.0-6.0) 01/28/19 15:45 1.0 /HPF (0.0-6.0) 01/28/19 15:45 U Epithel Cells (Auto) 3.0 /HPF (0-13.0) 01/28/19 15:45 1+ /HPF (Negative) 01/23/19 16:55 Few /HPF 01/23/19 16:55 95.0 mg/dL (0.1-20.0) H 01/23/19 16:55 33 mmol/L 01/23/19 16:55 15 mg/dL (5-11.8) H 01/23/19 16:55 Active Medications - Current Medications Current Medications: Generic Name Dose Route Start Last Admin Trade Name Freq PRN Reason Stop Dose Admin Acetaminophen 650 mg 01/22/19 17:19 01/27/19 05:27 Tylenol PO 650 mg Q4H PRN Administration Pain MILD(1-3)/Fever >100.5/PALMA Aspirin 81 mg 01/23/19 10:00 01/28/19 09:06 Baby Aspirin PO 81 mg DAILY NICKY Administration Atorvastatin Calcium 10 mg 01/23/19 22:00 01/27/19 22:10 Lipitor PO 10 mg QHS NICKY Administration Carvedilol 3.125 mg 01/22/19 22:15 01/28/19 09:06 Coreg PO 3.125 mg BID NICKY Administration Donepezil HCl 5 mg 01/25/19 22:00 01/27/19 22:11 Aricept PO 5 mg QHS NICKY Administration Heparin Sodium (Porcine) 5,000 unit 01/22/19 22:00 01/28/19 09:26 Heparin SUB-Q 5,000 unit Q12HR NICKY Administration Hydralazine HCl 50 mg 01/22/19 23:00 01/28/19 14:25 Apresoline PO Not Given Q8HR NICKY Hydralazine HCl 20 mg 01/22/19 22:10 Apresoline IV Q4H PRN SBP>170 or DBP>110 Sodium Chloride 1,000 mls @ 100 mls/hr 01/22/19 18:00 01/28/19 12:58 Nacl 0.9% 1000 Ml IV 75 mls/hr DIRECT NICKY Administration Melatonin 5 mg 01/25/19 15:45 Melatonin PO QHS PRN Sleep Mirtazapine 7.5 mg 01/22/19 23:00 01/27/19 22:11 Remeron PO 7.5 mg QHS NICKY Administration Ondansetron HCl 4 mg 01/22/19 17:19 Zofran IV Q8H PRN Nausea And Vomiting Risperidone 0.5 mg 01/22/19 23:00 01/28/19 09:06 Risperdal PO 0.5 mg BID NICKY Administration Sodium Chloride 10 ml 01/22/19 22:00 01/28/19 09:40 Sodium Chloride Flush Syringe 10 Ml IV Not Given BID NICKY Sodium Chloride 10 ml 01/22/19 17:19 Sodium Chloride Flush Syringe 10 Ml IV PRN PRN LINE FLUSH
--- NOTE | 2019-01-28 18:46 | XRay Report ---
CHEST 1 VIEW INDICATION / CLINICAL INFORMATION: Fever. COMPARISON: 01/23/2019 FINDINGS: SUPPORT DEVICES: None. HEART / MEDIASTINUM: The cardiac silhouette is borderline to mildly enlarged.. LUNGS / PLEURA: No significant pulmonary or pleural abnormality. No pneumothorax. ADDITIONAL FINDINGS: No significant additional findings. IMPRESSION: 1. No acute findings. No interval change. Signer Name: Kelly Izaguirre MD Signed: 01/28/2019 6:41 PM Workstation Name: [id number]
[2019-01-28] MEDS ORDERED: MIRALAX 3350 PO PRN (18:48)
[2019-01-28] MEDS: ARICEPT PO SCH (22:09)
[2019-01-28] MEDS: REMERON PO SCH (22:11)
[2019-01-29 05:53] LABS: Hemoglobin 10.2 gm/dl (10.1-14.3); Mean Corpuscular HGB Conc 34 % (30-34); Mean Corpuscular Volume 84 fl (79-97); Platelet Count 242 K/mm3 (140-440); Red Blood Count 3.59 M/mm3 (3.65-5.03); Red Cell Distribution Width 14.4 % (13.2-15.2)
[2019-01-29] MEDS: APRESOLINE PO SCH ×3 (06:10→22:20)
[2019-01-29 06:19] LABS: Calcium 8.5 mg/dL (8.4-10.2)
[2019-01-29] MEDS: RisperDAL PO SCH ×2 (09:15→22:20)
[2019-01-29] MEDS: HEPARIN SUB-Q SCH ×2 (09:15→22:21)
[2019-01-29] MEDS: BABY ASPIRIN PO SCH (09:17)
[2019-01-29] MEDS: SODIUM CHLORIDE FLUSH SYRINGE 10 ML IV SCH (09:27)
[2019-01-29] MEDS: COREG PO SCH ×2 (09:27→22:19)
--- NOTE | 2019-01-29 10:52 | Progress Note ---
Assessment and Plan Assessment and plan: Patient is 83 yo with hypertension, CAD , history of stroke, dementia, behavioral changes. She was admitted to [facility] on 01/22/19. Rapid response called because she vomited once. She has dementia, agitation, poor hearing, cannot give much history. She was seen and evaluated. Labs drawn revealed Creatinine of 1.7. She was diagnosed with acute kidney injury, discharged from [facility] and admitted to [facility]. She was started on iv fluids, evaluated by nephrology. She improved slowly, Cr improved to 1.5. Her medications were adjusted by Psych and she has been more alert. however she had fever yesterday, therefore intended discharge canceled. Obtained blood cultures, UA, CXR and consult ID.. 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 Full code status Discussed with 2 daughters at bedside. PT ongoing Psych following Dispo; awaiting placement Hospitalist Physical - Constitutional Vitals: Temp Pulse Resp BP Pulse Ox 99.3 F 76 20 99/42 97 01/29/19 08:00 01/29/19 09:27 01/29/19 10:00 01/29/19 09:27 01/29/19 08:00 Results - Labs CBC & Chem 7: 01/29/19 05:27 01/29/19 05:27 Labs: Laboratory Last Values WBC 7.8 K/mm3 (4.5-11.0) 01/29/19 05:27 RBC 3.59 M/mm3 (3.65-5.03) L 01/29/19 05:27 Hgb 10.2 gm/dl (10.1-14.3) 01/29/19 05:27 Hct 30.0 % (30.3-42.9) L 01/29/19 05:27 MCV 84 fl (79-97) 01/29/19 05:27 MCH 29 pg (28-32) 01/29/19 05:27 MCHC 34 % (30-34) 01/29/19 05:27 RDW 14.4 % (13.2-15.2) 01/29/19 05:27 Plt Count 242 K/mm3 (140-440) 01/29/19 05:27 Lymph % (Auto) 5.4 % (13.4-35.0) L 01/23/19 05:30 [place] % (Auto) 4.7 % (0.0-7.3) 01/23/19 05:30 Eos % (Auto) 0.0 % (0.0-4.3) 01/23/19 05:30 Baso % (Auto) 0.1 % (0.0-1.8) 01/23/19 05:30 Lymph # 0.9 K/mm3 (1.2-5.4) L 01/23/19 05:30 [place] # 0.8 K/mm3 (0.0-0.8) 01/23/19 05:30 Eos # 0.0 K/mm3 (0.0-0.4) 01/23/19 05:30 Baso # 0.0 K/mm3 (0.0-0.1) 01/23/19 05:30 Seg Neutrophils % 89.8 % (40.0-70.0) H 01/23/19 05:30 Seg Neutrophils # 15.7 K/mm3 (1.8-7.7) H 01/23/19 05:30 Sodium 142 mmol/L (137-145) 01/29/19 05:27 Potassium 4.9 mmol/L (3.6-5.0) 01/29/19 05:27 Chloride 107.3 mmol/L (98-107) H 01/29/19 05:27 Carbon Dioxide 22 mmol/L (22-30) 01/29/19 05:27 18 mmol/L 01/29/19 05:27 BUN 30 mg/dL (7-17) H 01/29/19 05:27 1.4 mg/dL (0.7-1.2) H 01/29/19 05:27 Estimated GFR 36 ml/min 01/29/19 05:27 21 % 01/29/19 05:27 Glucose 101 mg/dL (65-100) H 01/29/19 05:27 POC Glucose 91 (70-105) 01/29/19 08:10 5.4 % (4-6) 01/27/19 12:02 Calcium 8.5 mg/dL (8.4-10.2) 01/29/19 05:27 Triglycerides 41 mg/dL (2-149) 01/26/19 04:17 Cholesterol 124 mg/dL (50-199) 01/26/19 04:17 50 mg/dL (50-130) 01/26/19 04:17 74 mg/dL (40-59) H 01/26/19 04:17 1.67 % 01/26/19 04:17 Yellow (Yellow) 01/28/19 15:45 Clear (Clear) 01/28/19 15:45 6.0 (5.0-7.0) 01/28/19 15:45 Ur Specific [place] 1.011 (1.003-1.030) 01/28/19 15:45 <15 mg/dl mg/dL (Negative) 01/28/19 15:45 Neg mg/dL (Negative) 01/28/19 15:45 Neg mg/dL (Negative) 01/28/19 15:45 Neg (Negative) 01/28/19 15:45 Neg (Negative) 01/28/19 15:45 Neg (Negative) 01/28/19 15:45 < 2.0 mg/dL (<2.0) 01/28/19 15:45 Ur Leukocyte Esterase Tr (Negative) 01/28/19 15:45 3.0 /HPF (0.0-6.0) 01/28/19 15:45 1.0 /HPF (0.0-6.0) 01/28/19 15:45 U Epithel Cells (Auto) 3.0 /HPF (0-13.0) 01/28/19 15:45 1+ /HPF (Negative) 01/23/19 16:55 Few /HPF 01/23/19 16:55 95.0 mg/dL (0.1-20.0) H 01/23/19 16:55 33 mmol/L 01/23/19 16:55 15 mg/dL (5-11.8) H 01/23/19 16:55 Active Medications - Current Medications Current Medications: Generic Name Dose Route Start Last Admin Trade Name Freq PRN Reason Stop Dose Admin Acetaminophen 650 mg 01/22/19 17:19 01/27/19 05:27 Tylenol PO 650 mg Q4H PRN Administration Pain MILD(1-3)/Fever >100.5/PALMA Aspirin 81 mg 01/23/19 10:00 01/29/19 09:17 Baby Aspirin PO 81 mg DAILY NICKY Administration Atorvastatin Calcium 10 mg 01/23/19 22:00 01/28/19 21:59 Lipitor PO 10 mg QHS NICKY Administration Carvedilol 3.125 mg 01/22/19 22:15 01/29/19 09:27 Coreg PO Not Given BID NICKY Donepezil HCl 5 mg 01/25/19 22:00 01/28/19 22:09 Aricept PO 5 mg QHS NICKY Administration Heparin Sodium (Porcine) 5,000 unit 01/22/19 22:00 01/29/19 09:15 Heparin SUB-Q 5,000 unit Q12HR NICKY Administration Hydralazine HCl 50 mg 01/22/19 23:00 01/29/19 06:10 Apresoline PO 50 mg Q8HR NICKY Administration Hydralazine HCl 20 mg 01/22/19 22:10 Apresoline IV Q4H PRN SBP>170 or DBP>110 Sodium Chloride 1,000 mls @ 100 mls/hr 01/22/19 18:00 01/28/19 12:58 Nacl 0.9% 1000 Ml IV 75 mls/hr DIRECT NICKY Administration Melatonin 5 mg 01/25/19 15:45 01/28/19 22:00 Melatonin PO 5 mg QHS PRN Administration Sleep Mirtazapine 7.5 mg 01/22/19 23:00 01/28/19 22:11 Remeron PO 7.5 mg QHS NICKY Administration Ondansetron HCl 4 mg 01/22/19 17:19 Zofran IV Q8H PRN Nausea And Vomiting Polyethylene Glycol 17 gm 01/28/19 18:48 Miralax 3350 PO BID PRN Constipation Risperidone 0.5 mg 01/22/19 23:00 01/29/19 09:15 Risperdal PO 0.5 mg BID NICKY Administration Sodium Chloride 10 ml 01/22/19 22:00 01/29/19 09:27 Sodium Chloride Flush Syringe 10 Ml IV Not Given BID NICKY Sodium Chloride 10 ml 01/22/19 17:19 Sodium Chloride Flush Syringe 10 Ml IV PRN PRN LINE FLUSH
--- NOTE | 2019-01-29 11:04 | Consultation ---
History of Present Illness - Reason for Consult Consult date: 01/29/19 Fever Requesting physician: ADORE CHILDERS - History of Present Illness This patient is an 83 year old female, with a past medical history of CAD, CVA, Dementia and behavioral changes. She was in the [facility] until when rapid response was called on 01/22/19 for vomiting x1 and agitation. On admission WBC 17.5, Creatinine 1.7, temperatue 97.6, then highest temp 101.9 several days later. UA not c/w UTI. CXR shows no consolidation. Initial blood cultures show no growth. repeat blood cultures are in progress. Review of systems unobtainable due to mental status. History obtained from chart review and bedside nurse. Past History Past Medical History: hypertension, stroke, other (CAD) Past Surgical History: Other (Unable to obtain ) Social history: Lives alone Family history: no significant family history Medications and Allergies Allergies Allergy/AdvReac Type Severity Reaction Status Date / Time No Known Allergies Allergy Verified 01/13/19 05:10 Home Medications Medication Instructions Recorded Confirmed Last Taken Type Aspirin 81 mg PO DAILY 01/13/19 01/22/19 Unknown History Coreg 3.125 mg PO BID 01/13/19 01/22/19 Unknown History Crestor 5 mg PO DAILY 01/13/19 01/22/19 Unknown History Mirtazapine [Remeron 15mg TAB] 7.5 mg PO QHS tablet 01/22/19 01/22/19 Unknown Rx risperiDONE [RisperDAL] 0.5 mg PO BID tablet 01/22/19 01/22/19 Unknown Rx Donepezil [Aricept] 5 mg PO QHS tablet 01/29/19 Unknown Rx Melatonin [Melatonin 5MG TAB] 5 mg PO QHS PRN tablet 01/29/19 Unknown Rx Polyethylene Glycol 3350 [Miralax 17 gm PO BID PRN powd.pack 01/29/19 Unknown Rx 3350] hydrALAZINE [Apresoline TAB] 50 mg PO Q8HR tablet 01/29/19 Unknown Rx Active Meds: Active Medications Acetaminophen (Tylenol) 650 mg PO Q4H PRN PRN Reason: Pain MILD(1-3)/Fever >100.5/PALMA Last Admin: 01/27/19 05:27 Dose: 650 mg Documented by: Aspirin (Baby Aspirin) 81 mg PO DAILY [facility] Last Admin: 01/29/19 09:17 Dose: 81 mg Documented by: Atorvastatin Calcium (Lipitor) 10 mg PO QHS [facility] Last Admin: 01/28/19 21:59 Dose: 10 mg Documented by: Carvedilol (Coreg) 3.125 mg PO BID [facility] Last Admin: 01/29/19 09:27 Dose: Not Given Documented by: Donepezil HCl (Aricept) 5 mg PO QHS [facility] Last Admin: 01/28/19 22:09 Dose: 5 mg Documented by: Heparin Sodium (Porcine) (Heparin) 5,000 unit SUB-Q Q12HR [facility] Last Admin: 01/29/19 09:15 Dose: 5,000 unit Documented by: Hydralazine HCl (Apresoline) 50 mg PO Q8HR [facility] Last Admin: 01/29/19 06:10 Dose: 50 mg Documented by: Hydralazine HCl (Apresoline) 20 mg IV Q4H PRN PRN Reason: SBP>170 or DBP>110 Sodium Chloride (Nacl 0.9% 1000 Ml) 1,000 mls @ 100 mls/hr IV DIRECT [facility] Last Admin: 01/28/19 12:58 Dose: 75 mls/hr Documented by: Melatonin (Melatonin) 5 mg PO QHS PRN PRN Reason: Sleep Last Admin: 01/28/19 22:00 Dose: 5 mg Documented by: Mirtazapine (Remeron) 7.5 mg PO QHS [facility] Last Admin: 01/28/19 22:11 Dose: 7.5 mg Documented by: Ondansetron HCl (Zofran) 4 mg IV Q8H PRN PRN Reason: Nausea And Vomiting Polyethylene Glycol (Miralax 3350) 17 gm PO BID PRN PRN Reason: Constipation Risperidone (Risperdal) 0.5 mg PO BID [facility] Last Admin: 01/29/19 09:15 Dose: 0.5 mg Documented by: Sodium Chloride (Sodium Chloride Flush Syringe 10 Ml) 10 ml IV BID [facility] Last Admin: 01/29/19 09:27 Dose: Not Given Documented by: Sodium Chloride (Sodium Chloride Flush Syringe 10 Ml) 10 ml IV PRN PRN PRN Reason: LINE FLUSH Review of Systems ROS unobtainable: due to mental status Physical Examination - Physical Exam Narrative exam: Constitutional: Awake. Alert. Dementia Head, Ears, Nose: Normocephalic, atraumatic. External ears, nose normal Eyes: Conjunctivae/corneas clear. No icterus. No ptosis. Neck: Supple, no meningeal signs Oral: unable to access Cardiovascular: S1, S2 normal. Respiratory: Good air entry, clear to auscultation bilaterally GI: Soft, non-tender; bowel sounds normal. No peritoneal signs Musculoskeletal: No pedal edema, no cyanosis. Skin: No rash or abscess. Hem/Lymphatic: No palpable cervical or supraclavicular nodes. No lymphangitis Psych: Mood ok. Neurological: Awake. Dementia - Constitutional Vitals: Vital Signs Temp Pulse Resp BP Pulse Ox 99.3 F 76 20 99/42 97 01/29/19 08:00 01/29/19 09:27 01/29/19 10:00 01/29/19 09:27 01/29/19 08:00 Temperature -Last 24 Hours Temperature 99.3 F Temperature 97.4 F Temperature 99.7 F Results - Labs CBC & Chem 7: 01/29/19 05:27 01/29/19 05:27 Labs: Abnormal lab results 01/28/19 01/28/19 01/28/19 Range/Units 11:35 16:41 21:24 RBC (3.65-5.03) M/mm3 Hct (30.3-42.9) % Chloride (98-107) mmol/L BUN (7-17) mg/dL Creatinine (0.7-1.2) mg/dL Glucose (65-100) mg/dL POC Glucose 140 H 131 H 111 H (70-105) 01/29/19 01/29/19 Range/Units 05:27 05:27 RBC 3.59 L (3.65-5.03) M/mm3 Hct 30.0 L (30.3-42.9) % Chloride 107.3 H (98-107) mmol/L BUN 30 H (7-17) mg/dL Creatinine 1.4 H (0.7-1.2) mg/dL Glucose 101 H (65-100) mg/dL POC Glucose (70-105) - Imaging and Cardiology Chest x-ray: report reviewed (No consolidation) Assessment and Plan Cultures 01/23/19 Blood: no growth 01/28/19: in progress A/P: 83 year old female, with a past medical history of CAD, CVA, Dementia and behavioral changes. She was in the [facility] until when rapid response was called on 01/22/19 for vomiting x1 and agitation. Admitted with: 1. New Fever : etiology unknown. Isolated fever spike of 101.9 on 01/27/19. Has remained afebrile >24 hours. Blood cultures show no growth. Rpt blood cultures in progress. UA neg. CXR neg. Not currently receiving antibiotics. 2. JASON: Nephrology following 3. Alzheimer's Dementia: Initially admitted to [facility]. 4. History of CVA: 5. CAD: Recommendations: -follow-up repeat blood cultures -Clinically stable, no fevers in >24 hours -continue off antibiotics [facility] M: [phone] O:[phone]
--- NOTE | 2019-01-29 12:00 | Progress Note ---
Subjective - Reason for Consult Consult date: 01/29/19 Reason for consult: Psychiatry Follow-up - Chief Complaint Chief complaint: "Hello"" 83 y.o. AA female who was on the 5th floor for psy stabilization. The patient is now on the floor for medical stabilization. Psychiatry was consulted for medication mgmt. Today the patient is calm, but still confused during the assessment. She was pleasant throughout the interview. Per the staff, no behavioral disturbances overnight by the patient. No gestures of SI/HI's. Mental Status Exam - Vital signs Last Vital Signs Temp 99.3 F 01/29/19 08:00 Pulse 76 01/29/19 09:27 Resp 20 01/29/19 10:00 BP 99/42 01/29/19 09:27 Pulse Ox 97 01/29/19 08:00 - Exam Narrative exam: MSE: Appearance: calm Behavior: regular eye contact Speech: regular rate and tone Mood: "okay" Affect: congruent to mood Thought Process: confused Thought Content: no gestures of SI/HI's Motor Activity: lying in bed Cognition: alert Insight: limited Judgment: fair Assessment and Plan Impression: Dementia per the record. Today the patient was calm, but still confused during the assessment. Hearing/Vision impairment. Cr 1.4. No agitation by the patient in several days. DDx: R/O Delirium Recommendation/Plan: Continue Remeron 7.5 mg PO HS for sleep, Risperdal 0.5 mg PO BID for psychosis, and modify Melatonin 5 mg PO to PRN for sleep. Start Aricept 5 mg PO HS for dementia symptoms. Discussed possible metabolic side effects of Risperdal with the patient's 2 daughters, they verbalized understanding. Recommendation/Plan: Psy sign off. Recommend Delirium precautions below: 1. Frequently reorient patient and involve him/her in their care (simple explanations of procedures, tests, medications). 2. Lights on and shades open during daytime hours. 3. Write date and goals of care in a visible place. 4. Try to avoid unnecessary interruptions to sleep during nighttime hours. 5. Obtain glasses, hearing aids from home if patient uses these at baseline. 6. Avoid medications that may exacerbate delirium (especially narcotics, benzodiazepines, barbiturates, ambien, lunesta, and medications with excessive anticholinergic property). Dispo: Per case Mgmt, the patient is pending [facility] placement. Will staff with Dr Tavia Cherry.
--- NOTE | 2019-01-29 14:47 | Discharge Summary ---
Providers - Providers Date of Admission: 01/22/19 17:19 Attending physician: EUSEBIA VILA MD 01/22/19 Consult to Case Management [CONS] Routine Services Needed at Discharge: Other Notified:: BAY 01/23/19 08:19 Physical Therapy Evaluation and Treat [CONS] Routine Comment: Reason For Exam: Weakness 01/23/19 09:19 Consult to Physician [CONS] Routine Comment: Consulting Provider: STEVO SHERIDAN Physician Instructions: Reason For Exam: JASON 01/23/19 18:45 Consult to Mental Health [CONS] Routine Reason For Exam: Agitation Place consult to:: Psych Notified:: JENNIFER 01/28/19 18:40 Consult to Physician [CONS] Routine Comment: Consulting Provider: STEVIE SUMMERS Physician Instructions: Reason For Exam: Fever of 101.9 Primary care physician: MARIBEL PATRICK MD Hospitalization Hospital course: Patient is 83 yo with hypertension, CAD , history of stroke, dementia, behavioral changes. She was admitted to [facility] on 01/22/19. Rapid response called because she vomited once. She has dementia, agitation, poor hearing, cannot give much history. She was seen and evaluated. Labs drawn revealed Creatinine of 1.7. She was diagnosed with acute kidney injury, discharged from [facility] and admitted to [facility]. She was started on iv fluids, evaluated by nephrology. She improved slowly, Cr improved to 1.5. Her medications were adjusted by Psych and she has been more alert. however she had fever yesterday, therefore intended discharge canceled. Obtained blood cultures, UA, CXR and consult ID.. 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 Full code status Discussed with 2 daughters at bedside. PT ongoing Psych following Disposition: [id number] Time spent for discharge: 33 mins Core Measure Documentation - Palliative Care Palliative Care/ Comfort Measures: Not Applicable - Core Measures Any of the following diagnoses?: none Exam - Constitutional Vitals: Temp Pulse Resp BP Pulse Ox 98.9 F 75 18 117/58 97 01/29/19 13:27 01/29/19 14:39 01/29/19 13:27 01/29/19 14:39 01/29/19 14:18 General appearance: Present: no acute distress, well-nourished - EENT Eyes: Present: PERRL ENT: hearing intact, clear oral mucosa - Neck Neck: Present: supple, normal ROM - Respiratory Respiratory effort: normal Respiratory: bilateral: CTA - Cardiovascular Heart Sounds: Present: S1 & S2. Absent: rub, click - Extremities Extremities: pulses symmetrical, No edema Peripheral Pulses: within normal limits - Abdominal General gastrointestinal: Present: soft, non-tender, non-distended, normal bowel sounds Female genitourinary: Present: normal - Integumentary Integumentary: Present: clear, warm, dry - Musculoskeletal Musculoskeletal: gait normal, strength equal bilaterally - Psychiatric Psychiatric: appropriate mood/affect, intact judgment & insight - Neurologic Neurologic: CNII-XII intact, moves all extremities Plan Follow up with: MARIBEL PATRICK MD [Primary Care Provider] - 7 Days
--- NOTE | 2019-01-29 18:39 | Progress Note ---
Assessment and Plan - Patient Problems (1) Acute kidney injury Current Visit: Yes Status: Acute Plan to address problem: Acute kidney injury prerenal azotemia secondary to vomiting with ongoing diuresis. Kidney function improving. Follow-up electrolytes and renal function (2) Leukocytosis Current Visit: Yes Status: Acute Plan to address problem: Fever with leukocytosis resolving. Blood cultures still remain no growth so far (3) Delirium due to multiple etiologies Current Visit: No Status: Acute Plan to address problem: Mental status possibly back to her baseline (4) Major neurocognitive disorder due to Alzheimer's disease, probable, with behavioral disturbance Current Visit: No Status: Acute Plan to address problem: Management by psychiatrist Subjective Date of service: 01/29/19 Principal diagnosis: JASON Interval history: Patient seen lying in bed. She has no complaints. " I am losing my mind". Being helped from chair to the bed by C SOFTWARE DEVELOPER Objective - Exam Narrative Exam: Elderly -[place] female lying in bed in no acute distress HEENT: NCAT, pink oral mucous membrane Neck: Supple, no venous distention CVS: S1S2 irregular with stomach murmur, No rub or gallop Chest: Clear to auscultation Abdomen: Protuberant, soft, nontender, no organomegaly, bowel sounds are present Extremities: No edema Neuro: Awake, alert no focal deficits - Vital Signs Vital signs: Vital Signs - 12hr 01/29/19 01/29/19 01/29/19 08:00 09:23 09:27 Temperature 99.3 F 99.4 F Pulse Rate 91 H 69 76 Respiratory 18 Rate Blood Pressure 124/53 99/42 99/42 O2 Sat by Pulse 97 97 Oximetry 01/29/19 01/29/19 01/29/19 10:00 13:27 14:18 Temperature 98.9 F Pulse Rate 93 H 75 Respiratory 20 18 Rate Blood Pressure 115/56 117/58 O2 Sat by Pulse 97 97 Oximetry 01/29/19 14:39 Temperature Pulse Rate 75 Respiratory Rate Blood Pressure 117/58 O2 Sat by Pulse Oximetry - Lab 01/29/19 05:27 01/29/19 05:27 Most recent lab results Calcium 8.5 mg/dL (8.4-10.2) 01/29/19 05:27 95.0 mg/dL (0.1-20.0) H 01/23/19 16:55 33 mmol/L 01/23/19 16:55 15 mg/dL (5-11.8) H 01/23/19 16:55 Medications & Allergies - Medications Allergies/Adverse Reactions: Allergies No Known Allergies Allergy (Verified 01/13/19 05:10) Home Medications: Home Medications Medication Instructions Recorded Confirmed Last Taken Type Aspirin 81 mg PO DAILY 01/13/19 01/22/19 Unknown History Coreg 3.125 mg PO BID 01/13/19 01/22/19 Unknown History Crestor 5 mg PO DAILY 01/13/19 01/22/19 Unknown History Mirtazapine [Remeron 15mg TAB] 7.5 mg PO QHS tablet 01/22/19 01/22/19 Unknown Rx risperiDONE [RisperDAL] 0.5 mg PO BID tablet 01/22/19 01/22/19 Unknown Rx Donepezil [Aricept] 5 mg PO QHS tablet 01/29/19 Unknown Rx Melatonin [Melatonin 5MG TAB] 5 mg PO QHS PRN tablet 01/29/19 Unknown Rx Polyethylene Glycol 3350 [Miralax 17 gm PO BID PRN powd.pack 01/29/19 Unknown Rx 3350] hydrALAZINE [Apresoline TAB] 50 mg PO Q8HR tablet 01/29/19 Unknown Rx Active Medications: Generic Name Dose Route Start Last Admin Trade Name Freq PRN Reason Stop Dose Admin Acetaminophen 650 mg 01/22/19 17:19 01/27/19 05:27 Tylenol PO 650 mg Q4H PRN Administration Pain MILD(1-3)/Fever >100.5/PALMA Aspirin 81 mg 01/23/19 10:00 01/29/19 09:17 Baby Aspirin PO 81 mg DAILY NICKY Administration Atorvastatin Calcium 10 mg 01/23/19 22:00 01/28/19 21:59 Lipitor PO 10 mg QHS NICKY Administration Carvedilol 3.125 mg 01/22/19 22:15 01/29/19 09:27 Coreg PO Not Given BID NICKY Donepezil HCl 5 mg 01/25/19 22:00 01/28/19 22:09 Aricept PO 5 mg QHS NICKY Administration Heparin Sodium (Porcine) 5,000 unit 01/22/19 22:00 01/29/19 09:15 Heparin SUB-Q 5,000 unit Q12HR NICKY Administration Hydralazine HCl 50 mg 01/22/19 23:00 01/29/19 14:39 Apresoline PO Not Given Q8HR NICKY Hydralazine HCl 20 mg 01/22/19 22:10 Apresoline IV Q4H PRN SBP>170 or DBP>110 Sodium Chloride 1,000 mls @ 100 mls/hr 01/22/19 18:00 01/28/19 12:58 Nacl 0.9% 1000 Ml IV 75 mls/hr DIRECT NICKY Administration Melatonin 5 mg 01/25/19 15:45 01/28/19 22:00 Melatonin PO 5 mg QHS PRN Administration Sleep Mirtazapine 7.5 mg 01/22/19 23:00 01/28/19 22:11 Remeron PO 7.5 mg QHS NICKY Administration Ondansetron HCl 4 mg 01/22/19 17:19 Zofran IV Q8H PRN Nausea And Vomiting Polyethylene Glycol 17 gm 01/28/19 18:48 Miralax 3350 PO BID PRN Constipation Risperidone 0.5 mg 01/22/19 23:00 01/29/19 09:15 Risperdal PO 0.5 mg BID NICKY Administration Sodium Chloride 10 ml 01/22/19 22:00 01/29/19 09:27 Sodium Chloride Flush Syringe 10 Ml IV Not Given BID NICKY Sodium Chloride 10 ml 01/22/19 17:19 Sodium Chloride Flush Syringe 10 Ml IV PRN PRN LINE FLUSH
[2019-01-29] MEDS: REMERON PO SCH (22:20)
[2019-01-29] MEDS: ARICEPT PO SCH (22:20)
[2019-01-30] MEDS: SODIUM CHLORIDE FLUSH SYRINGE 10 ML IV SCH ×2 (00:19→09:24)
[2019-01-30] MEDS: APRESOLINE PO SCH ×2 (05:38→13:47)
--- NOTE | 2019-01-30 08:51 | Progress Note ---
Assessment and Plan Cultures 01/23/19 Blood: no growth 01/28/19 Blood no growth to date 01/28/19: Urine: GNR A/P: 83 year old female, with a past medical history of CAD, CVA, Dementia and behavioral changes. She was in the [facility] until when rapid response was called on 01/22/19 for vomiting x1 and agitation. Admitted with: 1. New Fever : etiology unknown. Isolated fever spike of 101.9 on 01/27/19. Blood cultures show no growth. Rpt blood cultures show no growth. UA neg. CXR neg. Urine culture GNR. 2. Asymptomatic Bacteriuria w/o pyuria.: UA negative. Urine culture GNR likely urine contamination. No antibiotics needed. 3. JASON: Nephrology following 4. Alzheimer's Dementia: Initially admitted to [facility]. 5. History of CVA: 6. CAD: Recommendations: -follow-up repeat blood cultures Clinically stable. ID is signing off, please call for questions. Trice Cummins NP [facility] M: [id number] O:[phone] Subjective Date of service: 01/30/19 Principal diagnosis: JASON Interval history: Patient seen and examined. Laying bed asleep. Easy to arouse. Report no acute distress. No fevers. Objective - Exam Narrative Exam: Constitutional: Asleep. Easy to arouse. No acute distress. Head, Ears, Nose: Normocephalic, atraumatic. External ears, nose normal Eyes: Conjunctivae/corneas clear. No icterus. No ptosis. Neck: Supple, no meningeal signs Oral: unable to access Cardiovascular: S1, S2 normal. Respiratory: Good air entry, clear to auscultation bilaterally GI: Soft, non-tender; bowel sounds normal. No peritoneal signs Musculoskeletal: No pedal edema, no cyanosis. Skin: No rash or abscess. Hem/Lymphatic: No palpable cervical or supraclavicular nodes. No lymphangitis Psych: Mood ok. Neurological: Awake. Dementia - Constitutional Vitals: Vital Signs Temp Pulse Resp BP Pulse Ox 98.6 F 103 H 18 153/98 98 01/30/19 07:41 01/30/19 07:41 01/30/19 08:29 01/30/19 07:41 01/30/19 08:29 Temperature -Last 24 Hours Temperature 98.6 F Temperature 98.8 F Temperature 99.5 F Temperature 98.9 F Temperature 99.4 F - Labs CBC & Chem 7: 01/29/19 05:27 01/29/19 05:27 Labs: Abnormal lab results 01/29/19 01/29/19 01/30/19 Range/Units 11:39 16:54 07:50 POC Glucose 121 H 165 H 110 H (70-105)
[2019-01-30] MEDS: RisperDAL PO SCH (09:15)
[2019-01-30] MEDS: BABY ASPIRIN PO SCH (09:18)
[2019-01-30] MEDS: HEPARIN SUB-Q SCH (09:19)
[2019-01-30] MEDS: COREG PO SCH (09:22)
--- NOTE | 2019-01-30 11:58 | Progress Note ---
Assessment and Plan - Patient Problems (1) Acute kidney injury Current Visit: Yes Status: Acute Plan to address problem: Acute kidney injury prerenal azotemia secondary to vomiting with ongoing diuresis. Kidney function was improving. Follow-up electrolytes and renal function (2) Leukocytosis Current Visit: Yes Status: Acute Plan to address problem: Fever with leukocytosis resolving. Blood cultures still remain no growth so far (3) Delirium due to multiple etiologies Current Visit: No Status: Acute Plan to address problem: Mental status possibly back to her baseline (4) Major neurocognitive disorder due to Alzheimer's disease, probable, with behavioral disturbance Current Visit: No Status: Acute Plan to address problem: Management by psychiatrist Subjective Date of service: 01/30/19 Principal diagnosis: JASON Interval history: Patient seen lying in bed. She has no complaints. Just finished walking with physical therapy. "Y'all have been so good to me." Objective - Exam Narrative Exam: Elderly -Spanish female lying in bed in no acute distress HEENT: NCAT, pink oral mucous membrane Neck: Supple, no venous distention CVS: S1S2 irregular with stomach murmur, No rub or gallop Chest: Clear to auscultation Abdomen: Protuberant, soft, nontender, no organomegaly, bowel sounds are present Extremities: No edema Neuro: Awake, alert no focal deficits - Vital Signs Vital signs: Vital Signs - 12hr 01/30/19 01/30/19 01/30/19 02:24 07:41 09:22 Temperature 98.8 F 98.6 F Pulse Rate 73 103 H 85 Respiratory 18 18 Rate Blood Pressure 123/51 153/98 144/64 O2 Sat by Pulse 98 98 Oximetry 01/30/19 10:00 Temperature Pulse Rate Respiratory 18 Rate Blood Pressure O2 Sat by Pulse 98 Oximetry - Lab 01/29/19 05:27 01/29/19 05:27 Most recent lab results Calcium 8.5 mg/dL (8.4-10.2) 01/29/19 05:27 95.0 mg/dL (0.1-20.0) H 01/23/19 16:55 33 mmol/L 01/23/19 16:55 15 mg/dL (5-11.8) H 01/23/19 16:55 Medications & Allergies - Medications Allergies/Adverse Reactions: Allergies No Known Allergies Allergy (Verified 01/13/19 05:10) Home Medications: Home Medications Medication Instructions Recorded Confirmed Last Taken Type Aspirin 81 mg PO DAILY 01/13/19 01/22/19 Unknown History Coreg 3.125 mg PO BID 01/13/19 01/22/19 Unknown History Crestor 5 mg PO DAILY 01/13/19 01/22/19 Unknown History Mirtazapine [Remeron 15mg TAB] 7.5 mg PO QHS tablet 01/22/19 01/22/19 Unknown Rx risperiDONE [RisperDAL] 0.5 mg PO BID tablet 01/22/19 01/22/19 Unknown Rx Donepezil [Aricept] 5 mg PO QHS tablet 01/29/19 Unknown Rx Melatonin [Melatonin 5MG TAB] 5 mg PO QHS PRN tablet 01/29/19 Unknown Rx Polyethylene Glycol 3350 [Miralax 17 gm PO BID PRN powd.pack 01/29/19 Unknown Rx 3350] hydrALAZINE [Apresoline TAB] 50 mg PO Q8HR tablet 01/29/19 Unknown Rx Active Medications: Generic Name Dose Route Start Last Admin Trade Name Freq PRN Reason Stop Dose Admin Acetaminophen 650 mg 01/22/19 17:19 01/27/19 05:27 Tylenol PO 650 mg Q4H PRN Administration Pain MILD(1-3)/Fever >100.5/PALMA Aspirin 81 mg 01/23/19 10:00 01/30/19 09:18 Baby Aspirin PO 81 mg DAILY NICKY Administration Atorvastatin Calcium 10 mg 01/23/19 22:00 01/29/19 22:20 Lipitor PO 10 mg QHS NICYK Administration Carvedilol 3.125 mg 01/22/19 22:15 01/30/19 09:22 Coreg PO 3.125 mg BID NICKY Administration Donepezil HCl 5 mg 01/25/19 22:00 01/29/19 22:20 Aricept PO 5 mg QHS NICKY Administration Heparin Sodium (Porcine) 5,000 unit 01/22/19 22:00 01/30/19 09:19 Heparin SUB-Q 5,000 unit Q12HR NICKY Administration Hydralazine HCl 50 mg 01/22/19 23:00 01/30/19 05:38 Apresoline PO 50 mg Q8HR NICKY Administration Hydralazine HCl 20 mg 01/22/19 22:10 Apresoline IV Q4H PRN SBP>170 or DBP>110 Sodium Chloride 1,000 mls @ 100 mls/hr 01/22/19 18:00 01/28/19 12:58 Nacl 0.9% 1000 Ml IV 75 mls/hr DIRECT NICKY Administration Melatonin 5 mg 01/25/19 15:45 01/28/19 22:00 Melatonin PO 5 mg QHS PRN Administration Sleep Mirtazapine 7.5 mg 01/22/19 23:00 01/29/19 22:20 Remeron PO 7.5 mg QHS NICKY Administration Ondansetron HCl 4 mg 01/22/19 17:19 Zofran IV Q8H PRN Nausea And Vomiting Polyethylene Glycol 17 gm 01/28/19 18:48 Miralax 3350 PO BID PRN Constipation Risperidone 0.5 mg 01/22/19 23:00 01/30/19 09:15 Risperdal PO 0.5 mg BID NICKY Administration Sodium Chloride 10 ml 01/22/19 22:00 01/30/19 09:24 Sodium Chloride Flush Syringe 10 Ml IV Not Given BID NICKY Sodium Chloride 10 ml 01/22/19 17:19 Sodium Chloride Flush Syringe 10 Ml IV PRN PRN LINE FLUSH
--- NOTE | 2019-01-30 16:38 | Discharge Summary ---
Providers - Providers Date of Admission: 01/22/19 17:19 Date of discharge: 01/30/19 Attending physician: STEPHANIE NELSON 01/22/19 Consult to Case Management [CONS] Routine Services Needed at Discharge: Other Notified:: BAY 01/23/19 08:19 Physical Therapy Evaluation and Treat [CONS] Routine Comment: Reason For Exam: Weakness 01/23/19 09:19 Consult to Physician [CONS] Routine Comment: Consulting Provider: STEVO SHERIDAN Physician Instructions: Reason For Exam: JASON 01/23/19 18:45 Consult to Mental Health [CONS] Routine Reason For Exam: Agitation Place consult to:: Psych Notified:: JENNIFER 01/28/19 18:40 Consult to Physician [CONS] Routine Comment: Consulting Provider: STEVIE SUMMERS Physician Instructions: Reason For Exam: Fever of 101.9 Primary care physician: MARIBEL PATRICK MD Hospitalization Hospital course: Patient is 83 yo with hypertension, CAD , history of stroke, dementia, behavioral changes. [facility] Rapid response called because she vomited once. She has dementia, agitation, poor hearing, cannot give much history. She was seen and evaluated. Labs drawn revealed Creatinine of 1.7. She was diagnosed with acute kidney injury, discharged from [facility] and admitted to [facility]. She was started on iv fluids, evaluated by nephrology. She improved slowly, Cr improved to 1.5. Her medications were adjusted by Psych and she has been more alert. however she had fever yesterday, therefore intended discharge canceled. Obtained blood cultures, UA, CXR and consult ID.. JASON due to vasomotor nephropathy Cr 1.5 today Discussed with Nephrology Stable renal-rollins Fever resolved Consult ID No further abx Dehydration Improved Vomiting resolved Major Neurocognitive disorder due to Alzheimers dementia Initially admitted to [facility], transferred here because JASON Psych following psych adjusting medications food and nutrition supervisor stated patient not accepted back at [facility] To go home on dc Dementia supportive care Hypertension patient states she has History of stroke On Aspirin,statin Coronary artery disease Stable No chest pain Continue Aspirin, Coreg, Statin 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 Full code status Disposition: [id number] INPT REHAB FACILITY Core Measure Documentation - Palliative Care Palliative Care/ Comfort Measures: Not Applicable - Core Measures Any of the following diagnoses?: none Exam - Constitutional Vitals: Temp Pulse Resp BP Pulse Ox 98.6 F 78 18 115/45 99 01/30/19 07:41 01/30/19 13:47 01/30/19 10:00 01/30/19 13:47 01/30/19 13:20 General appearance: Present: no acute distress, well-nourished - EENT Eyes: Present: PERRL ENT: hearing intact, clear oral mucosa - Neck Neck: Present: supple, normal ROM - Respiratory Respiratory effort: normal Respiratory: bilateral: CTA - Cardiovascular Heart rate: 78 Rhythm: regular Heart Sounds: Present: S1 & S2. Absent: rub, click - Extremities Extremities: no ischemia, pulses intact, pulses symmetrical, No edema Peripheral Pulses: within normal limits - Abdominal General gastrointestinal: Present: soft, non-tender, non-distended, normal bowel sounds Female genitourinary: Present: normal - Rectal Rectal Exam: deferred - Integumentary Integumentary: Present: clear, warm, dry - Musculoskeletal Musculoskeletal: gait normal, strength equal bilaterally - Psychiatric Psychiatric: appropriate mood/affect, intact judgment & insight - Neurologic Neurologic: CNII-XII intact, moves all extremities - Allied Health Allied health notes reviewed: nursing, case management Plan Activity: no restrictions Diet: low fat, low cholesterol Follow up with: MARIBEL PATRICK MD [Primary Care Provider] - 7 Days
[2019-01-30 17:24] VITALS: BP 125/46
== END 2019-01-30 20:15 | DRG 683 ==
LOC: 2B-ACE 16:56 → UNDOADMIN 16:56 → 2B-ACE 17:19
PROVIDERS: ADMIT Internal Medicine; ATTEND Internal Medicine
DX: N17.0 Acute kidney failure with tubular necrosis (principal); F02.81 Dementia in other diseases classified elsewhere, unspecified severity, with behavioral disturbance; F05 Delirium due to known physiological condition; G30.8 Other Alzheimer's disease; D72.829 Elevated white blood cell count, unspecified; I10 Essential (primary) hypertension; E86.0 Dehydration; I25.10 Atherosclerotic heart disease of native coronary artery without angina pectoris; H54.40 Blindness, one eye, unspecified eye; R82.71 Bacteriuria; H40.9 Unspecified glaucoma; R50.9 Fever, unspecified; H91.90 Unspecified hearing loss, unspecified ear; Z86.73 Personal history of transient ischemic attack (TIA), and cerebral infarction without residual deficits; Z79.82 Long term (current) use of aspirin; Z79.899 Other long term (current) drug therapy
CPT/HCPCS: 36415; 71045; 80048; 80061; 81001; 82570; 82962; 83036; 84156; 84300; 85025; 85027; 87040; 87086; G0378; A9270-GY; J1644; J7030